=== PATIENT | female | born 1940 | race Caucasian/White ===

== ENCOUNTER 2023-05-03 10:01 | Emergency (ER) | payer OTHER, SELFPAY ==
[2023-05-03 10:06] VITALS: BP 138/83; PULSE 74; RESP 18; TEMP 36.9; O2SAT 99; BMI 23.2
--- NOTE | 2023-05-03 10:30 | ED.UPPEXIN ---
HPI - Extremity Injury (Upper) General Time Seen by Provider: 10:30 Date Seen: 05/03/23 Chief Complaint: Extremity Pain/Injury, Upper Stated Complaint: fell- hurt L wrist Time Seen by Provider: 05/03/23 10:29 Source: patient and RN notes reviewed Mode of arrival: ambulatory Limitations: no limitations History of Present Illness HPI narrative: Patient is an 82-year-old female that fell playing pickleball today and landed on her left wrist. She complains of pain medially along the risks, states it hurts to flex the wrist. There is no numbness tingling. She fell on the left hip area too but states that is not painful, can walk without any pain. 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 complaint: injury to: left and wrist Related Data Home Medications Medication Instructions Recorded Confirmed aspirin 81 mg tablet,delayed 81 mg PO DAILY 05/03/23 05/03/23 release (Adult Aspirin Regimen) atorvastatin 40 mg tablet 40 mg PO DAILY 05/03/23 05/03/23 levothyroxine 50 mcg tablet 50 mcg PO DAILY 05/03/23 05/03/23 multivitamin (Daily Multi-Vitamin 1 tab PO DAILY 05/03/23 05/03/23 tablet) Allergies Allergy/AdvReac Type Severity Reaction Status Date / Time sulfamethoxazole Allergy Intermediate Verified 05/03/23 10:15 [From Bactrim] trimethoprim [From Bactrim] Allergy Intermediate Verified 05/03/23 10:15 metronidazole [From Flagyl] Allergy Mild Verified 05/03/23 10:15 calcium channel blockers Allergy Intermediate Uncoded 05/03/23 10:15 Review of Systems Narrative: As per HPI. PFSH PFS Social History Smoking Status: Never smoker How often do you have a drink containing alcohol: never AUDIT-C Alcohol total score: 0 Non-prescribed substance use: denies use Exam Const: Vital Signs, click to edit/add: Vital Signs - 24 hr 05/03/23 10:06 Temperature 98.5 F Pulse Rate [Pulse Oximeter] 74 Respiratory Rate 18 Blood Pressure [Ri ght Upper Arm] 138/83 Pulse Oximetry 99 Oxygen Delivery Me thod Room Air 82-year-old female ambulatory into the ED of her own accord. She is alert interactive no apparent distress. Face atraumatic. She has ice on her left wrist, this was removed. There is swelling along the distal wrist, tender over the distal radius. Normal light touch sensation of her fingers and good capillary refill. I was able to work her wedding rings off the left 4th finger with use of lubricant. She did tolerate this well. The gabrielle wedding ring was the most difficult to come off, the wedding band came off easily after. She has no pain into the hand or fingers, no pain above the distal radius, elbow and upper arm are normal. Documenting provider has reviewed patient's vital signs: yes Course Course Hospital Course: We will obtain left wrist x-rays to see any underlying fracture. Do suspect that she probably has sustained underlying fracture from the fall. Vital Signs Vital signs: Initial Vital Signs Temperature 98.5 F 05/03/23 10:06 Temperature Source Temporal Artery Scan 05/03/23 10:06 Pulse Rate 74 05/03/23 10:06 Respiratory Rate 18 05/03/23 10:06 Blood Pressure 138/83 05/03/23 10:06 Blood Pressure Mean 101 05/03/23 10:06 Blood Pressure Position Supine 05/03/23 10:06 Pulse Oximetry 99 05/03/23 10:06 Oxygen Delivery Method Room Air 05/03/23 10:06 Vital Signs Temperature 98.5 F 05/03/23 10:06 Pulse Rate 74 05/03/23 10:06 Respiratory Rate 18 05/03/23 10:06 Blood Pressure 138/83 05/03/23 10:06 Pulse Oximetry 99 05/03/23 10:06 Oxygen Delivery Method Room Air 05/03/23 10:06 Temperature 98.5 F 05/03/23 10:06 Pulse Rate 74 05/03/23 10:06 Respiratory Rate 18 05/03/23 10:06 Blood Pressure 138/83 05/03/23 10:06 Pulse Oximetry 99 05/03/23 10:06 Oxygen Delivery Method Room Air 05/03/23 10:06 MDM - Extremity Injury (Upper) Imaging Data XR left wrist: Attestation: I have reviewed the pertinent imaging results. My impression: See distal radius fracture, can see fragment along the dorsal aspect of the radius. Await Radiology over-read. Do not believe that this requires reduction or surgery at this time. Radiologist's impression: Patient: GISELLE BERRY Facility:?[facility] Patient ID:?[id number] Site Patient ID:?[id number]. Site :?[id number] Study:?XRay Extremity Left WRIST 3V-05/03/2023 11:00:19 AM Ordering Physician:Yoandy Mccoy Final Report: Indication: Injury and pain Technique: Left wrist 3 view Comparison: None Findings: There is a mildly displaced intra-articular fracture involving the distal radial metaphysis with associated dorsal impaction. Degenerative changes at the triscaphe joint and 1st carpometacarpal joint. The distal ulna is intact. Impression: Acute intra-articular distal radial metaphyseal fracture with dorsal impaction. Dictated by Christian Farley MD @ 05/03/2023 11:21:46 AM (Electronic Signature) Discharge Plan Discharge Clinical Impression: Distal radius fracture, left Patient Disposition: Home, Self-Care Condition: Stable Instructions: Wrist Fracture in Adults (ED) Additional Instructions: Need to keep splint material clean and dry. Can use arm sling as needed for comfort. Ice, elevate this extremity as much as you are able to for the next 3-5 days to help decrease pain and swelling. Keep your rings off these fingers of this hand for the time being. Tylenol 1000 mg 3 times a day if needed for pain management. Call the orthopedic clinic at [phone] to get scheduled for follow-up. Prescriptions: No Action atorvastatin 40 mg tablet 40 mg PO DAILY levothyroxine 50 mcg tablet 50 mcg PO DAILY aspirin [Adult Aspirin Regimen] 81 mg tablet,delayed release (DR/EC) 81 mg PO DAILY multivitamin [Daily Multi-Vitamin] Tablet 1 tab PO DAILY Follow Up/Referrals: Olimpia Reyes MD [Primary Care Provider] - Stand Alone Forms: [facility] Info Instructions Procedures Orthopedic Splinting/Casting Injury #1: Side: left Upper Extremity Injury Location: wrist Upper extremity immobilizer: short arm (Dorsal-volar splint using Ortho Glass) Applied by clinician: / Other Orthopedic Equipment: other (Arm sling) Conclusion: patient tolerated procedure
--- NOTE | 2023-05-03 10:34 | CRLHL7_ITS ---
For Patients: As a result of the Cures Act, medical imaging exams and procedure reports are released immediately into your electronic medical record. You may view this report before your referring provider. If you have questions, please contact your health care provider. Indication: Injury and pain Technique: Left wrist 3 view Comparison: None Findings: There is a mildly displaced intra-articular fracture involving the distal radial metaphysis with associated dorsal impaction. Degenerative changes at the triscaphe joint and 1st carpometacarpal joint. The distal ulna is intact. Impression: Acute intra-articular distal radial metaphyseal fracture with dorsal impaction. Dictated by Christian Farley MD @ 05/03/2023 11:21:46 AM (Electronically Signed)
== END 2023-05-03 11:41 | disposition home or self-care (01) ==
PROVIDERS: Emergency Provider Family Medicine; PCP Family Medicine
DX: S52.502A Unspecified fracture of the lower end of left radius, initial encounter for closed fracture (principal); W18.30XA Fall on same level, unspecified, initial encounter; Y93.73 Activity, racquet and hand sports
CPT/HCPCS: 29125; 73110; 99283

== ENCOUNTER 2023-08-06 13:30 | Outpatient (RCR) | payer OTHER, SELFPAY ==
--- NOTE | 2023-06-17 17:07 | OT.OPOE ---
OT Outpatient Ortho Eval OT Outpatient Ortho Eval* Start: 06/17/23 16:29 Freq: Status: Active Protocol: Document 06/17/23 16:31 LCN (Rec: 06/17/23 16:52 LCN [id number]) E-signed By Gemma Mansfield, OTR/L, CLT OT OP Ortho Eval Details Complexity Complexity Low Insurance Information Insurance Information Blue Cross/Blue Shield Outpatient History/Precautions Current Condition/Medical Diagnosis Referring Provider Bronson Das PA-C Treatment Diagnosis L wrist stiffness, ROM loss after L distal radius fracture Date of Onset 05/03/23 Medical Conditions Arthritis Other Conditions allergic to sulfamethoxazole, trimethoprim, diltiazem and metronidazole Medical/Functional History Medical History Reviewed Yes Social History 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 Hobbies playing piano for [employer] and [employer], reading caring for grandchildren. Fitness [employer], fitness center Ortho Subjective Subjective Subjective Megha Bradley is an active youthful 82 y/o female who fell onto outstretched hand during pickle ball with her 20 y/o partner. She was found to have a, interarticular distal radius fracture with 11 degree angulation angulation and and mild dorsal displacement and ulnar styloid fragment. SHe was casted through 06/06 and fit into a velcro brace for use during heavy tasks, off with light tasks like dishwashing and playing piano for short periods. 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 Pain Assessment Pain Present Pain Present Pain Reported Location L wrist, TFCC area Description Tightness,Pressure,Sharp,Dull, Achy,Throbbing,With Movement, Heaviness Intensity 4 Range of Motion and Strength Wrist Range of Motion and Strength Wrist Range of Motion and Strength Good shoulder and elbow ROM. SUpination to 80 of 90 with TFCC area tenderness during overpressure. Pronation 110 of 110. WE to 35 of 75. WF 40 of 75[address] UD [address] 10 of [address] Pressure at MC 1/2 proximal head and TFCC areas. Can make 90% loose fist. Extends digits off table 5 degrees. Joint appearance-- radial shift of hand off midline, bulging at lunate area, CMC squaring, thenar/ hypothenar/ forearm muscle wasting. Good skin color, cool skin temp. Gripping and pinching are 6/10 pain, per below Hand Pinch/Rod And Tube Straightener Strength Hand Left Rod And Tube Straightener Strength Position 1 (lbs) 5 Lateral Pinch Strength (lbs) 4 Three Point Pinch (lbs) 4 Right Rod And Tube Straightener Strength Position 1 (lbs) 50 Lateral Pinch Strength (lbs) 16 Three Point Pinch (lbs) 15 OT Problems Problems Problems Decreased Strength,Decreased Range of Motion,Decreased Dexterity,Pain,Lifting, Gripping,Pinching Problems Comments hard to open jars, pull pants up with de luna pinch. Newly able to tie shoes. Other Problems Opening Containers,Dressing, Fasteners Patient Potential Good Assessment Assessment Assessment Given Megha's?difficulty with edema, pain, ROM and strength loss of L hand/wrist after her distal radius fracture combined with STT CMC OA history, she would benefit from skilled OT to address these areas to help resume higher level IADL tasks. Occupational Therapy Treatment Plan - OP Potential Rehabilitation Potential Excellent Set Goals Goals Set with Patient Yes Goals Goals In 10 weeks, pt will demonstrate:? 1) Decreased pn to <2/10 80% of the time with sustained gripping, carrying groceries, reading books and playing piano. 2) I HEP for stretching, gradual strengthening and self mgmt strategies. 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 4)??Pt to be fit with functional bracing (for wrist) and use adaptive strategies to protect joint integrity to support less pain with ADL. Treatment Plan Treatment Plan Evaluation,Edema Control,Joint Mobilization,Manual Therapy, Splinting,Therapeutic Exercise ,Self Care/Home Management, Education Expected Frequency 1-2x Week Expected Duration 8-10 Weeks Expected Duration Comments Outcomes, longer need for OT services could be impacted by L CMC and STT OA comorbidities . Home Program Home Program Home Program Initiated Home Program Specifics Warm water soaks, wrist glides /stretches for WE/FL, RD/UD sup/pronation and SROM WE/WF. Certification Certification I Certify That: Therapy Services Provided, Therapy Plan Established, Therapy Plan Reviewed Recertification Information Recertification Information Initial Certification Date 06/17/23 Recertification Due Date 09/15/23 Provider Signature Shows Agreement With POC & Medical Necessity Physician Comment/Change Comment or Changes Physician NPI Number #
--- NOTE | 2023-07-01 12:50 | OT.OPODN ---
OT Outpatient Ortho Daily Note OT Outpatient Ortho Daily Note* Start: 06/17/23 16:29 Freq: Status: Active Protocol: Document 07/01/23 10:14 LCN (Rec: 07/01/23 12:50 LCN [id number]) E-signed By Gemma Mansfield OTR/Brennan, CLT Type of Note Type of Note Type of Note Daily Note,Note to MD Visit Number 5 Insurance Information Insurance Information Blue Cross/Blue Shield Outpatient History/Precautions Current Condition/Medical Diagnosis Referring Provider Bronson Das PA-C Treatment Diagnosis L wrist stiffness, ROM loss after L distal radius fracture Date of Onset 05/03/23 Medical Conditions Arthritis Other Conditions allergic to sulfamethoxazole, trimethoprim, diltiazem and metronidazole Medical/Functional History Medical History Reviewed Yes Social History 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 Fitness [employer], fitness center Ortho Subjective Subjective Subjective Is able to play piano for three songs with and without brace, gets occasional waves of MF/RF numbness in L hand, pinching feeling at lunate during PROM of WE, wall push up. Using brace while driving , encouraging to wean as she can for house hold chores/ washing windows, light yard work. OT suggests she try light pickle ball drills with R hand at the court with brace . Still hard to pour out pots. Megha Ling is an active youthful 82 y/o female who fell onto outstretched hand during pickle ball with her 20 y/o partner. She was found to have a, interarticular distal radius fracture with 11 degree angulation angulation and and mild dorsal displacement and ulnar styloid fragment. She was casted through 06/06 and fit into a velcro brace for use during heavy tasks, off with light tasks like dishwashing and playing piano for short periods. 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 Pain Assessment Pain Present Pain Present Pain Reported Location L wrist, TFCC area Description Tightness,Pressure,Sharp,Dull, Achy,Throbbing,With Movement, Heaviness Intensity 3 OT OP Daily Ortho Note/Assessment Manual Therapy Manual Therapy Minutes (minutes) 35 Manual Therapy Comments OTR completes STM of forearm flexor and extensor muscle bulk, joint mobilizations of distal and proximal carpal row . Gets pain at TFCC Splinting Splinting Minutes (minutes) 7 Splinting Comments Completed trial with neoprene TFCC stabilizer band w velcro closure with and without weightbearing, wall push push, helped some? Total Occupational Therapy Time Occupational Therapy Minutes 35 Home Program Home Program Home Program Revised,Compliant Home Program Specifics 06/28/23- Yellow putty refrigerator assembler/ rolling alternating 2pt and de luna pinch. 06/21/23- WE FL AAROM , wall push ups Warm water soaks, wrist glides /stretches for WE/FL, RD/UD sup/pronation and SROM WE/WF. Range of Motion and Strength Wrist Range of Motion and Strength Wrist Range of Motion and Strength Good shoulder and elbow ROM. SUpination to 80 of 90 with TFCC area tenderness during overpressure. Pronation 110 of 110. WE to 35 of 75. WF 40 of 75. UD [address] 10 of [address] Pressure at MC 1/2 proximal head and TFCC areas. Can make 90% loose fist. Extends digits off table 5 degrees. Joint appearance-- radial shift of hand off midline, bulging at lunate area, CMC squaring, thenar/ hypothenar/ forearm muscle wasting. Good skin color, cool skin temp. Gripping and pinching are 6/10 pain, per below Hand/Finger/Thumb Range of Motion and Strength Hand/Finger/Thumb Range of Motion and 07/01/23-- OA CHANGES hyper Strength flexes with TH IP, MP hyper extended and L MCP hyper extension pattern at IF; Gets sore. Goniometric Comments Goniometric Comments Goniometric Comments 07/01/23-- WE to 65 and WF improves to 60-67 degrees inside of session. ( tractioning stretch helps.) 06/28/23-- WE to 50 and WR FL to 60. [employer] 7# R. 06/21/23-- WE 50, WF 45 pre OT Hand Pinch/[employer] [employer] [facility] Strength Hand Left [facility] [employer] [facility] Strength Position 1 (lbs) 5 Lateral Pinch Strength (lbs) 4 Three Point Pinch (lbs) 4 Right [employer] [facility] Strength Position 1 (lbs) 50 Lateral Pinch Strength (lbs) 16 Three Point Pinch (lbs) 15 OT Problems Problems Problems Decreased Strength,Decreased Range of Motion,Decreased Dexterity,Pain,Lifting, Gripping,Pinching Problems Comments hard to open jars, pull pants up with de luna pinch. Newly able to tie shoes. Other Problems Opening Containers,Dressing, Fasteners Patient Potential Excellent Assessment Assessment Assessment Pt progressing steadily with ROM, decreasing pain and improved endurance with piano playing and baking tasks. Given Megha's?difficulty with edema, pain, ROM and strength loss of L hand/wrist after her distal radius fracture combined with STT CMC OA history, she would benefit from skilled OT to address these areas to help resume higher level IADL tasks. Occupational Therapy Treatment Plan - OP Potential Rehabilitation Potential Excellent Set Goals Goals Set with Patient Yes Goals Goals In 10 weeks, pt will demonstrate:? 1) Decreased pn to <2/10 80% of the time with sustained gripping, carrying groceries, reading books and playing piano. 2) I HEP for stretching, gradual strengthening and self mgmt strategies. 3) improved L refrigerator assembler strength to 35# and pinch to 12# with L wrist pain < 1/10. 4)??Pt to be fit with functional bracing (for wrist) and use adaptive strategies to protect joint integrity to support less pain with ADL. Treatment Plan Treatment Plan Evaluation,Edema Control,Joint Mobilization,Manual Therapy, Splinting,Therapeutic Exercise ,Self Care/Home Management, Education Expected Frequency 1-2x Week Expected Duration 8-10 Weeks Expected Duration Comments Outcomes, longer need for OT services could be impacted by L CMC and STT OA comorbidities . Occupational Therapy Billing Units Treatment Minutes Untimed Treatment Minutes 7 Timed Treatment Minutes 35 Total Treatment Minutes 42 Billing Units Manual Therapy 2 Certification Certification I Certify That: Therapy Services Provided, Therapy Plan Established, Therapy Plan Reviewed Recertification Information Recertification Information Initial Certification Date 06/17/23 Recertification Due Date 09/15/23 Provider Signature Shows Agreement With POC & Medical Necessity Physician Comment/Change Comment or Changes Physician NPI Number #
--- NOTE | 2023-08-06 16:21 | OT.OPODN ---
OT Outpatient Ortho Daily Note OT Outpatient Ortho Daily Note* Start: 06/17/23 16:29 Freq: Status: Active Protocol: Document 08/06/23 15:56 LCN (Rec: 08/06/23 16:21 LCN [id number]) E-signed By Gemma Mansfield, OTR/L, CLT Type of Note Type of Note Type of Note Daily Note,Note to MD,Recert/ Progress Note Visit Number [id number] Insurance Information Insurance Information Blue Cross/Blue Shield Outpatient History/Precautions Current Condition/Medical Diagnosis Referring Provider Bronson Das PA-C Treatment Diagnosis L wrist stiffness, ROM loss after L distal radius fracture Date of Onset 05/03/23 Medical Conditions Arthritis Other Conditions allergic to sulfamethoxazole, trimethoprim, diltiazem and metronidazole Medical/Functional History Medical History Reviewed Yes Social History 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 Hobbies playing piano for [employer] and [employer], reading caring for grandchildren. Fitness [employer], fitness center Ortho Subjective Subjective Subjective It is still hard to get out of tub but weightbearing into L palm/forearm, It's not pretty . Also gets foot cramps. Is able to play pickle ball ( using mostly R hand, brace on L wrist) Plays piano x 20 min, drives without brace x 60 min w very mild IF/TH numbness in L hand. (has sx 2-3 intervals per day 5-10 minutes, can stretch her way out of it with wrist flexion/traction). Gets some paresthesia at night as well for R and L hands. Still gets pinching feeling at TFCC during PROM of WE, wall push up. I can tell the motion I have is probably what I will get, it's not perfect, but it' s pretty good. Feels stiff in all joints every morning, contrasts baths help. Pain Assessment Pain Present Pain Present Pain Reported Location L wrist, TFCC area Description Tightness,Pressure,Sharp,Dull, Achy,Throbbing,With Movement, Heaviness Intensity 2 OT OP Daily Ortho Note/Assessment Therapeutic Exercise Therapeutic Exercise Minutes (minutes) 15 Therapeutic Exercise Comments Completed objective data and review of goal progress. Pt with out questions on home program. Shown how to progress office auditor strengthening further with office auditor rubber band ekg monitor with 15 # band loading. Self-Care/Home Management Self-Care/Home Management Minutes ( 35 minutes) Self-Care/Home Management Comments Problem solved how to get in/ out of tub safely adding dycem to tub rim ( patting surfaces dry before moving), chrome tub edge clamp grab bar ( info issued to order) Simulated in clinic. Practiced opening jars/ bottles with adaptive handles (issued ordering info) . 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 Splinting Splinting Comments 07/24/23-- Got new wrist neoprene wrap for L wrist/TFCC support. 07/16/23-- Pt to get wrist splint for HS hand numbness. Total Occupational Therapy Time Occupational Therapy Minutes 50 Home Program Home Program Home Program Revised,Compliant Home Program Specifics 07/24/23-- isotonic WR EX, FL w orange band. Cont UD and RD as isometrics. 07/05/23-- isometric band loading series WR EX/FL/RD/UD in neutral, orange band 06/28/23- Yellow putty office auditor/ rolling alternating 2pt and matias pinch. 06/21/23- WE FL AAROM , wall push ups Warm water soaks, wrist glides /stretches for WE/FL, RD/UD sup/pronation and SROM WE/WF. Range of Motion and Strength Wrist Range of Motion and Strength Wrist Range of Motion and Strength Good shoulder and elbow ROM. SUpination to 80 of 90 with TFCC area tenderness during overpressure. Pronation 110 of 110. WE to 35 of 75. WF 40 of 75. [address]D [address] 10 of [address] Pressure at MC 1/2 proximal head and TFCC areas. Can make 90% loose fist. Extends digits off table 5 degrees. Joint appearance-- radial shift of hand off midline, bulging at lunate area, CMC squaring, thenar/ hypothenar/ forearm muscle wasting. Good skin color, cool skin temp. Gripping and pinching are 6/10 pain, per below Hand/Finger/Thumb Range of Motion and Strength Hand/Finger/Thumb Range of Motion and 07/01/23-- OA CHANGES hyper Strength flexes with TH IP, MP hyper extended and L MCP hyper extension pattern at IF; Gets sore. Goniometric Comments Goniometric Comments Goniometric Comments 08/06/23-- AROM / PROM WR EX 65 / 70. WR FL 70 / 73. SUP 87 of 90. 07/16/23-- Pre OT, AROM of WE is 45, AAROM 55. WR FL is 65 AROM and 72 AAROM. Durkan's ( -) and Tinel's (-). 3 pt pinch is 11# R, no pain, with and without CMC push splint. 07/05/23-- WE to 65 and WF improves to 60-65 degrees inside of session. Matias pinch and 3 pt are 5#. 07/01/23-- WE to 65 and WF improves to 60-67 degrees inside of session. ( tractioning stretch helps.) 06/28/23-- WE to 50 and WR FL to 60. Proof Sorter 7# R. 06/21/23-- WE 50, WF 45 pre OT Hand Pinch/Proof Sorter Strength Hand Left Proof Sorter Strength Position 1 (lbs) 14 Lateral Pinch Strength (lbs) 5 Three Point Pinch (lbs) 6 Right Proof Sorter Strength Position 1 (lbs) 50 Lateral Pinch Strength (lbs) 16 Three Point Pinch (lbs) 15 Upper Extremity Special Tests Wrist Durkan's Test Negative Left Median Nerve-Carpal Tunnel Wrist Phalen Test Negative Left Wrist Tinel Test left Upper Extremity Special Tests Comments Comments Luis Delgado's Negative per 07/16/23 testing OT Problems Problems Problems Decreased Strength,Decreased Range of Motion,Decreased Dexterity,Pain,Lifting, Gripping,Pinching Problems Comments hard to open jars, pull pants up with matias pinch. Newly able to tie shoes. Other Problems Opening Containers,Dressing, Fasteners Patient Potential Excellent Assessment Assessment Assessment Pt progressing with daily activity level, despite having TFCC achiness daily and intermittent carpal tunnel irritation as well. Feeling ready for discharge from OT, but pacheco have some continued office auditor and pinch weakness with have plateaued in the past month. Occupational Therapy Treatment Plan - OP Potential Rehabilitation Potential Excellent Set Goals Goals Set with Patient Yes Goals Goals GOAL PROGRESS 08/06/23-- 1) Decreased pn to <2/10 80% of the time with sustained gripping, carrying groceries, reading books and playing piano. (GOAL MET) 2) I HEP for stretching, gradual strengthening and self mgmt strategies. (GOAL MET) 3) improved L office auditor strength to 35# and pinch to 12# with L wrist pain < 1/10. (GOAL NOT MET, plateaued at 14# office auditor, Matias pinch 5# and 3 pt pinch 6# ) 4)??Pt to be fit with functional bracing (for wrist) and use adaptive strategies to protect joint integrity to support less pain with ADL. ( GOAL MET) Treatment Plan Treatment Plan Evaluation,Edema Control,Joint Mobilization,Manual Therapy, Splinting,Therapeutic Exercise ,Self Care/Home Management, Education Expected Frequency 1-2x Week Expected Duration 8-10 Weeks Expected Duration Comments Outcomes, longer need for OT services could be impacted by L CMC and STT OA comorbidities . Comment Summary OT is leaving account open for further support if requested after her next Ortho appointment August 16 Occupational Therapy Billing Units Treatment Minutes Timed Treatment Minutes 50 Total Treatment Minutes 50 Billing Units Self Care/Home Management 2 Therapeutic Exercise 1 Certification Certification I Certify That: Therapy Services Provided, Therapy Plan Established, Therapy Plan Reviewed Recertification Information Recertification Information Initial Certification Date 06/17/23 Recertification Due Date 09/15/23 Provider Signature Shows Agreement With POC & Medical Necessity Physician Comment/Change Comment or Changes Physician NPI Number # Discharge Note Discharge Note Discharge Summary Anticipating this is pt's discharge from OT, per above progress. Date of First Visit for Therapy 06/17/23 Date of Last Visit for Therapy 08/06/23 Initial Primary Functional Limitations/ Megha Ling is an active Concerns youthful 82 y/o female who fell onto outstretched hand during pickle ball with her 20 y/o partner. She was found to have a, interarticular distal radius fracture with 11 degree angulation angulation and and mild dorsal displacement and ulnar styloid fragment. She was casted through 06/06 and fit into a velcro brace for use during heavy tasks, off with light tasks like dishwashing and playing piano for short periods. 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 Interventions Provided During Treatment Edema Control,Joint Mobilization,Manual Therapy, Splinting,Therapeutic Exercise ,Self Care/Home Management, Education Recommendations/Reason for Discharge Met All Therapy Goals,Progress Cont w/HEP Discharge Instructions May return for further OT if mild CTS symptoms and weakness of office auditor/pinch are continued concern.
== END 2023-12-04 23:59 | disposition home or self-care (01) ==
PROVIDERS: PCP Family Medicine; Visit Provider Physician Assistant Surgical
DX: S52.502A Unspecified fracture of the lower end of left radius, initial encounter for closed fracture (principal); M25.632 Stiffness of left wrist, not elsewhere classified; Z74.09 Other reduced mobility; Z51.89 Encounter for other specified aftercare
CPT/HCPCS: 97110; 97140; 97165; 97535; X5282

== ENCOUNTER 2024-08-07 09:56 | Inpatient (IN) | payer OTHER, SELFPAY ==
[2024-08-07 10:25] VITALS: BP 150/77; PULSE 81; RESP 20; TEMP 36.5; O2SAT 99; BMI 21.5
--- NOTE | 2024-08-07 10:55 | ED.ABDPAIN ---
HPI - Abdominal Pain General Time Seen by Provider: 10:55 Date Seen: 08/07/24 Chief Complaint: Abdominal Pain Stated Complaint: diverticulitis Time Seen by Provider: 08/07/24 10:54 Source: patient and RN notes reviewed Mode of arrival: ambulatory Limitations: no limitations History of Present Illness HPI narrative: This 83-year-old female is ambulatory into the ED of her own accord with concern of possible diverticulitis. She started with some abdominal cramping or discomfort on Saturday, states right now there is not really much for pain. She might get a little cramping. She started passing mucus yesterday, went to a clear liquid diet. She states she is actually hungry, no nausea or vomiting with this, no fevers or chills. She has fecal urgency. She did note a little blood streaking in some of the mucus. There is still some soft formed stool within some mucus. She is not aware of any diagnosis of colitis ever. She thinks last time she had imaging was in 2021. She does have a bottle of Augmentin on hand which she has not started, takes this with traveling in case there might be diverticulitis that would develop. Related Data Home Medications ?Medication ?Instructions ?Recorded ?Confirmed aspirin 81 mg tablet,delayed 81 mg PO DAILY 05/03/23 08/16/23 release (Adult Aspirin Regimen) atorvastatin 40 mg tablet 40 mg PO DAILY 05/03/23 08/16/23 levothyroxine 50 mcg tablet 50 mcg PO DAILY 05/03/23 08/16/23 multivitamin (Daily Multi-Vitamin 1 tab PO DAILY 05/03/23 08/16/23 tablet) Allergies Allergy/AdvReac Type Severity Reaction Status Date / Time sulfamethoxazole (From Allergy Intermediate Verified 08/07/24 12:01 Bactrim) trimethoprim (From Bactrim) Allergy Intermediate Verified 08/07/24 12:01 diltiazem Allergy Unknown Verified 08/07/24 12:01 metronidazole (From Flagyl) Allergy Unknown Verified 08/07/24 12:01 calcium channel blockers Allergy Intermediate Uncoded 08/07/24 12:01 Review of Systems Status of ROS Reports: 6 or more systems reviewed and unremarkable except as noted in History and below [facility] Medical History Encounter for preprocedure screening laboratory testing for severe acute respiratory syndrome coronavirus 2 (SARS-CoV-2) ?Z01.812 - Encounter for preprocedural laboratory examination (ICD-10) ?Z20.822 - Contact with and (suspected) exposure to covid-19 (ICD-10) Surgical History History of phacoemulsification of cataract of right eye with intraocular lens implantation (01/04/21) ?Z98.41 - Cataract extraction status, right eye (ICD-10) ?Z96.1 - Presence of intraocular lens (ICD-10) History of phacoemulsification of cataract of left eye with intraocular lens implantation (01/18/21) ?Z98.42 - Cataract extraction status, left eye (ICD-10) ?Z96.1 - Presence of intraocular lens (ICD-10) Social History Smoking Status: Never smoker Do you use any of these nicotine containing products: None Second hand tobacco smoke exposure: No How often do you have a drink containing alcohol: never AUDIT-C Alcohol total score: 0 Non-prescribed substance use: denies use service: No Exam Const: Vital Signs, click to edit/add: Vital Signs - 24 hr 08/07/24 10:25 08/07/24 13:12 Temperature 97.7 F Pulse Rate [Pulse Oximeter] 81 77 Respiratory Rate 20 18 Blood Pressure [Le ft Upper Arm] 150/77 H 133/64 Pulse Oximetry 99 98 Oxygen Delivery Me thod Room Air Room Air This 83-year-old female is alert, interactive, no apparent distress. Sclera clear, symmetric facial function. Speech is normal. She is able sit up, lungs are clear, good air entry, no wheezing crackles, no tachypnea. CV regular rate and rhythm, no murmur, normal S1-S2, no S3-S4. Abdomen is soft, nondistended, bowel sounds are definitely active but no tympanitic change noted. Abdomen is soft, feel no masses, no tenderness anywhere, no rebound or guarding. Skin visualized without rash or jaundice. Documenting provider has reviewed patient's vital signs: yes Course Course ED Course: Her abdominal exam is reassuring, no significant pain. Will still proceed with CT imaging to help elucidate if this is early diverticulitis versus potentially a colitis. Will get baseline labs. She really does not have any nausea or pain at this time that requires any intervention. Clinically a abdominal exam is certainly nonsurgical at this time. Reevaluation(s) Time of Reevaluation #1: 13:17 Reevaluation #1: Did call general surgeon Dr. Munoz, she will be here to review CT/case. She feels that the abscess is not amenable to any percutaneous drainage, is deep in the pelvis after she reviewed the images. Will plan on putting patient in the hospital on ertapenem. Will contact the hospitalist, she is speaking with the patient right now. Consultations Consultation #1: Have spoken with the hospitalist Dr. Moreno, she will accept. Time: 13:41 Vital Signs Vital signs: Initial Vital Signs Temperature 97.7 F 08/07/24 10:25 Temperature Source Temporal Artery Scan 08/07/24 10:25 Pulse Rate 81 08/07/24 10:25 Pulse Rhythm Regular 08/07/24 10:25 Respiratory Rate 20 08/07/24 10:25 Blood Pressure 150/77 H 08/07/24 10:25 Blood Pressure Mean 101 08/07/24 10:25 Blood Pressure Position Supine 08/07/24 10:25 Pulse Oximetry 99 08/07/24 10:25 Oxygen Delivery Method Room Air 08/07/24 10:25 Vital Signs Temperature 97.7 F 08/07/24 10:25 Pulse Rate 81 08/07/24 10:25 Respiratory Rate 20 08/07/24 10:25 Blood Pressure 150/77 H 08/07/24 10:25 Pulse Oximetry 99 08/07/24 10:25 Oxygen Delivery Method Room Air 08/07/24 10:25 Temperature 97.7 F 08/07/24 10:25 Pulse Rate 77 08/07/24 13:12 Respiratory Rate 18 08/07/24 13:12 Blood Pressure 133/64 08/07/24 13:12 Pulse Oximetry 98 08/07/24 13:12 Oxygen Delivery Method Room Air 08/07/24 13:12 Medications Administered Medications: Generic Name Dose Route Start Last Admin Trade Name Freq PRN Reason Stop Dose Admin Ertapenem 1 gm/ Sodium 100 mls @ 200 mls/hr 08/07/24 13:30 08/07/24 13:33 Chloride IVPB 200 mls/hr Q24H JOEY Administration MDM - Abdominal Pain Lab Data Attestation: I reviewed the patient's lab results. Labs: Lab Results 08/07/24 08/07/24 Range/Units 11:00 11:15 WBC 7.44 (4.50-11.00) K/uL RBC 4.05 (4.00-5.20) m/uL Hgb 13.0 (12.0-16.0) gm/dL Hct 39.9 (33.0-51.0) % MCV 99 (80-100) fL MCH 32 (26-34) pg MCHC 33 (32-36) gm/dL RDW Coeff of Mary 12.7 (11.5-15.5) % Plt Count 178 (140-440) K/uL Neut % (Auto) 78.6 H (42.0-72.0) % Lymph % (Auto) 11.6 L (20-44) % Davis % (Auto) 9.0 (0.0-11.0) % Eos % (Auto) 0.4 (0.0-7.0) % Baso % (Auto) 0.3 (0.0-3.0) % Neut # (Auto) 5.80 (1.7-7.0) K/uL Lymph # (Auto) 0.90 (0.90-2.90) K/uL Davis # (Auto) 0.70 (0.00-0.90) K/UL Eos # (Auto) 0.03 (0.00-0.50) K/uL Baso # (Auto) 0.02 (0.00-0.30) K/uL Abs Immat Gran (auto) 0.01 (0.00-0.30) K/uL Imm/Tot Granulo (auto) 0.1 % Sodium 132 L (135-149) mmol/L Potassium 3.9 (3.6-5.1) mmol/L Chloride 99 (96-114) mmol/L Carbon Dioxide 25 (20-32) mmol/L Anion Gap 8 (7-15) mEq/L BUN 22 (7-30) mg/dL Creatinine 0.7 (0.5-1.5) mg/dL Estimated Creat Clear 36.81 Estimated GFR 86 ml/min Glucose 90 (60-115) mg/dL Lactate 1.0 (0.5-1.9) mmol/L Calcium 8.9 (8.4-10.6) mg/dL Total Bilirubin 1.2 (0.1-1.5) mg/dL AST 37 H (12-35) U/L ALT 21 (4-35) U/L Alkaline Phosphatase 63 (40-150) U/L C-Reactive Protein 6.3 H (0.5-1.0) mg/dL Total Protein 7.6 (6.0-8.3) g/dL Albumin 4.3 (3.3-5.0) g/dL POC Creatinine 0.8 (0.6-1.3) mg/dl Imaging Data CT scan - abdomen: Attestation: I have reviewed the pertinent imaging results. Radiologist's impression: Patient: GISELLE BERRY Facility:?[facility] Patient ID:?[id number] Site Patient ID:?[id number]. Site :?[id number] Study:?CT-Abdomen/Pelvis 62CC ISOVUE 370-08/07/2024 12:04:37 PM Ordering Physician:Yoandy Mccoy Final Report: INDICATION: Mucous stools. Cramping. History of diverticulitis. TECHNIQUE: CT abdomen and pelvis acquired with 62 cc of Isovue 370 IV contrast. COMPARISON: CT abdomen and pelvis without contrast 02/25/2022. FINDINGS: Lower chest: Mild bibasilar scarring or atelectasis. Lung bases are otherwise clear. No pleural or pericardial effusions. Pectus deformity, as before. Liver: Fatty change. No focal lesion. Spleen: Unremarkable. Pancreas: Unremarkable. Gallbladder and bile ducts: No calcified stones or biliary ductal dilatation. Kidneys: Small right renal cyst. No urolithiasis or hydronephrosis. Adrenal glands: Unremarkable. GI tract: Colonic diverticulosis with wall thickening and pericolonic stranding of the sigmoid colon in the midline pelvis. An adjacent rim enhancing pericolonic collection measures 17 mm on image 92 of series 2. No bowel obstruction. No free air or free fluid. Lymph nodes: No pathologic lymphadenopathy. Vascular structures: Atherosclerotic disease. No abdominal aortic aneurysm. Pelvic Organs: Bladder and adnexal regions as imaged are unremarkable. Bones: No acute or suspicious osseous abnormality. Degenerative changes spine and pelvis. IMPRESSION: Acute sigmoid diverticulitis in the pelvis with associated 17 mm pericolonic abscess. Dictated by Kal Goyla MD @ 08/07/2024 12:33:03 PM Please note that all CT scans at this facility use dose modulation, iterative reconstruction, and/or weight-based dosing when appropriate to reduce radiation dose to as low as reasonably achievable. Dictated by: Kal Goyal MD @ 08/07/2024 12:33:17 (Electronic Signature) Discharge Plan Discharge Clinical Impression: Diverticulitis of intestine with abscess Qualifiers: Diverticulitis site: large intestine Diverticulitis bleeding: without bleeding Qualified Code(s): K57.20 - Diverticulitis of large intestine with perforation and abscess without bleeding Prescriptions: No Action atorvastatin 40 mg tablet 40 mg PO DAILY levothyroxine 50 mcg tablet 50 mcg PO DAILY aspirin [Adult Aspirin Regimen] 81 mg tablet,delayed release (DR/EC) 81 mg PO DAILY multivitamin [Daily Multi-Vitamin] Tablet 1 tab PO DAILY Follow Up/Referrals: Olimpia Reyes MD [Primary Care Provider] -
--- NOTE | 2024-08-07 10:59 | CRLHL7_ITS ---
For Patients: As a result of the Century Cures Act, medical imaging exams and procedure reports are released immediately into your electronic medical record. You may view this report before your referring provider. If you have questions, please contact your health care provider. INDICATION: Mucous stools. Cramping. History of diverticulitis. TECHNIQUE: CT abdomen and pelvis acquired with 62 cc of Isovue 370 IV contrast. COMPARISON: CT abdomen and pelvis without contrast 02/25/2022. FINDINGS: Lower chest: Mild bibasilar scarring or atelectasis. Lung bases are otherwise clear. No pleural or pericardial effusions. Pectus deformity, as before. Liver: Fatty change. No focal lesion. Spleen: Unremarkable. Pancreas: Unremarkable. Gallbladder and bile ducts: No calcified stones or biliary ductal dilatation. Kidneys: Small right renal cyst. No urolithiasis or hydronephrosis. Adrenal glands: Unremarkable. GI tract: Colonic diverticulosis with wall thickening and pericolonic stranding of the sigmoid colon in the midline pelvis. An adjacent rim enhancing pericolonic collection measures 17 mm on image 92 of series 2. No bowel obstruction. No free air or free fluid. Lymph nodes: No pathologic lymphadenopathy. Vascular structures: Atherosclerotic disease. No abdominal aortic aneurysm. Pelvic Organs: Bladder and adnexal regions as imaged are unremarkable. Bones: No acute or suspicious osseous abnormality. Degenerative changes spine and pelvis. IMPRESSION: Acute sigmoid diverticulitis in the pelvis with associated 17 mm pericolonic abscess. Dictated by Kal Goyal MD @ 08/07/2024 12:33:03 PM Please note that all CT scans at this facility use dose modulation, iterative reconstruction, and/or weight-based dosing when appropriate to reduce radiation dose to as low as reasonably achievable. Dictated by: Kal Goyal MD @ 08/07/2024 12:33:17 (Electronically Signed)
[2024-08-07 11:24] LABS: Basophils Absolute Auto 0.02 K/uL (0.00-0.30); Basophils Percent Auto 0.3 % (0.0-3.0); Eosinophils Absolute Auto 0.03 K/uL (0.00-0.50); Eosinophils Percent Auto 0.4 % (0.0-7.0); Hematocrit 39.9 % (33.0-51.0); Immature Granulocytes Abs Auto 0.01 K/uL (0.00-0.30); Immature Granulocytes Pct Auto 0.1 %; Lymphocytes Percent Auto 11.6 % (20-44); Mean Corpuscular HGB Conc 33 gm/dL (32-36); Mean Corpuscular Hemoglobin 32 pg (26-34); Mean Corpuscular Volume 99 fL (80-100); Neutrophils Percent Auto 78.6 % (42.0-72.0); Platelet Count* 178 K/uL (140-440); RDW Coefficient of Variation % 12.7 % (11.5-15.5); Red Blood Count 4.05 m/uL (4.00-5.20); White Blood Count* 7.44 K/uL (4.50-11.00)
--- OUTSIDE RECORDS SUMMARY | 2024-08-07 11:26 | XMS_ITS | Clinical Summary ---
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 Medications Medication Sig Dispensed Refills Start Date End Date Status omega-3 fatty acids-vitamin E (FISH OIL) 1,000 mg cap Take by mouth. Active MULTIVITAMIN ORAL Take by mouth. Act yeimi aspirin chewable 81 mg chewable tablet Take 81 mg by mouth once daily with a meal. Active CALCIUM CARBONATE (CALCIUM 600 ORAL)Indications:w ith D3 Take by mouth. Active psyllium powd Take 1 Dose by mouth. Active cycloSPORINE (Restasis) 0.05 % ophthalmic emulsion Place 1 Drop into both eyes every 12 hours. 0 2 Active nystatin (MYCOSTATIN) ointmentIndication s:Perineal rash in female Apply topically to affected area(s) 2 times daily. 30 g 2 2 Active hyoscyamine (Levsin) 0.125 mg tabletIndications: Diverticulitis Take 1 Tablet (0.125 mg) by mouth every 4 hours if needed for Colic. 30 Tablet 3 Active amoxicillin-clavul anate 875-125 mg tablet (AUGMENTIN)Indicat ions:Diverticuliti s Take 1 tablet three times daily for 7 days for diverticulitis 21 Tablet 3 3 Active triamcinolone (ARISTOCORT; KENALOG) 0.1 % creamIndications:C hronic eczema Apply topically to affected area(s) two times daily. 80 g 2 3 Active ipratropium (ATROVENT NASAL) 21 mcg (0.03 %) nasal sprayIndications:P urulent postnasal drainage Inhale 2 Sprays into affected nostril(s) three times daily. [place] dose in each nostril. 30 mL 11 3 Active atorvastatin (LIPITOR) 40 mg tabletIndications: Hyperlipidemia, unspecified hyperlipidemia type TAKE 1 TABLET(40 MG) BY MOUTH DAILY WITH THE EVENING MEAL 30 Tablet 4 Active levothyroxine (SYNTHROID) 50 mcg tabletIndications: Hypothyroidism (acquired) TAKE 1 TABLET(50 MCG) BY MOUTH BEFORE BREAKFAST 30 Tablet 4 Active levothyroxine (SYNTHROID) 50 mcg tabletIndications: Hypothyroidism (acquired) Take 1 Tablet (50 mcg) by mouth before breakfast. 90 Tablet 4 024 Discontinued atorvastatin (LIPITOR) 40 mg tabletIndications: Hyperlipidemia, unspecified hyperlipidemia type Take 1 Tablet (40 mg) by mouth once daily with evening meal. 90 Tablet 4 024 Discontinued Active Problems Problem Noted Date Diagnosed Date Hypothyroidism (acquired) 07/12/2020 Hyperlipidemia 07/12/2020 Chronic eczema 07/12/2020 Arthritis of right knee 07/12/2020 Diverticulosis 07/12/2020 Resolved Problems Problem Noted Date Diagnosed Date Resolved Date Brugada syndrome 07/12/2020 12/27/2020 Encounters Date Type Department Care Team Description 08/07/2024 Nurse Triage [facility] [address] [place] [address] Olimpia Reyes MD Blood In Stool 08/06/2024 Refill [facility] [address] [place] [address] Olimpia Reyes MD Refill Request (Levothyroxine, Atorvastatin) 08/03/2024 Refill [facility] [address] [place] [address] Olimpia Reyes MD Refill Request (Atorvastatin, Levothyroxine) from Last 3 Months Immunizations Name Administration Dates Next Due Amb Influenza, Inactivated A IIV4 (Age 65+ Years) Preserv Free 06/24/2020 COVID-19 vaccine ([employer] NTech 30mcg/0.3mL) PF, MDV 11/30/2020,11/09/2020 Hepatitis A (Adult) 02/11/2014,07/16/2013 Influenza A (H1N1), Inactivated 10/25/2009 Influenza A (H1N1), Inactiva lucinda (Age >=3 Years) 10/25/2009 Influenza Virus, Unspecified 08/06/2016, 05/31/2012,06/14/2011,07/31 Influenza, High-dose Inactivated 019,07/01/2016,06/15/2015,07/16 Influenza, High-dose Quadriv alent Inactivated 06/27/2023,06/15/2022,06/21/2021 Influenza, IIV3 (Age 6-35 mos) 06/14/2010,2008,07/05/2008 Influenza, IIV3 (Age >=3 years) 06/16/20 14,07/03/2012,05/31/2012,06/18,06/14/2010,07/05/2008,07/31/2007 ,07/31/2003 Influenza, IIV4 06/30/2017 Influenza, Inactivated IIV3 (Age 65+ Years) Preserv Free 07/17/2018 Pneumococcal Poly,23-Valent (Pneumovax) 03/08/2006 Pneumococcal conj 13-Valent (Prevnar 13) 06/15/2015 RSV, Recombinant ADJ Reconst ituted (Arexvy 120MCG/0.5mL) 07/25/2023 Td (Age >=7 Years) 08/06/2002 Tdap 01/06/2013 Zoster (Shingrix-RZV, recombinant) 05/22/2019, Family History Medical History Relation Name Comments Cancer-prostate Brother Heart Disease Child Genetic vascul ar/heart disease affecting 3 children--2 daughters and 1 son have . Cancer-breast No Family History Relation Name Status Comments Brother Child Social History Tobacco Use Types Packs/Day Years Used Date Smoking Tobacco: Never Smokeless Tobacco: Never Tobacco Cessation:Counseling Given: Yes Alcohol Use Standard Drinks/Week Comments Not Currently 0 (1 standard drink = 0.6 oz pur e alcohol) PHQ-2 Answer Date Recorded PHQ-2 TOTAL SCORE 0 08/20/2023 Social Connections Answer Date Recorded Frequency of Communication with Friends and Fami ly Not on file 01/19/2023 Financial Resource Strain Answer Date R ecorded Difficulty of Paying Living Expenses 3 01/18/2022 Difficulty of Paying Living Expenses Not on file 01/18/2022 Food Insecurity Answer Date Recorded Worried About Running Out of Food in the Last Ye ar 1 01/18/2022 Transportation Needs Answer Date Record ed Lack of Transportation (Medical) 1 01/18/2022 Housing Stability Answer Date Recorded Unable to Pay for Housing in the Last Year 1 01/18/2022 Sex and Gender Information Value Date Recorded Sex Assigned at Not on file Gender Identity Not on file Sexual Orientation Not on file Obstetrics History Last Filed Vital Signs Vital Sign Reading Time Taken Comments Blood Pressure 137/88 08/20/2023 2:11 PM PRACTICE PROFESSIONAL Pulse 82 08/20/2023 2:11 PM PRACTICE PROFESSIONAL Temperature 36.6 ??C (97.9 ??F) 05/24/2023 8:53 AM CD T Respiratory Rate 16 12/30/2013 3:00 AM CDT Oxygen Saturation 100% 08/20/2023 2:11 PM PRACTICE PROFESSIONAL Inhaled Oxygen Concentration - - Weight 57.5 kg (126 lb 11.2 oz) 08/20/2023 2:11 PM PRACTICE PROFESSIONAL Height 162.6 cm (5' 4) 08/20/2023 2:11 PM PRACTICE PROFESSIONAL Body Mass Index 21.75 08/20/2023 2:11 PM PRACTICE PROFESSIONAL Plan of Treatment Upcoming Encounters Date Type Department Care Team (Late st Contact Info) Description 08/19/2024 9:00 AM PRACTICE PROFESSIONAL Ancillary Procedure [facility] [address] [place] [address] 08/25/2024 8:25 AM PRACTICE PROFESSIONAL Office Visit [facility] [address] [place] [address] Olimpia Reyes MD [address] [place] [address] Health Maintenance Due Date Last Done Comments Tetanus booster 01/06/2023 01/06/2013, 08/06/2002 COVID-19 vaccine series ( season) 2024 07/04/2023, 03/11/2023, 07/16/2022, Additional history exists Influenza for age 65+ 05/31/2024 06/27/2023 , 06/15/2022, 06/21/2021, Additional history exists BMI (ht and wt on same day) for age 18+ 08/20/2024 08/20/2023, 08/16/2022, 01/18/2022, Additional history exists Depression screening for age 12+ 08/20/2024 08/20/2023, 08/16/2022, 08/14/2022, Additional history exists Medicare Wellness for age 65+ 08/20/2024, 08/16/2022, 08/03/2021, Additional history exists Tdap Completed 01/06/2013 Pneumococcal series for age 65+ Completed 5, 03/08/2006 Zoster (shingles) series for age 50+ Completed 05/22/2019, 02/13/2019 DEXA/DXA scan for age 65+ Completed 08/07/2021 RSV vaccine for adults or Completed 07/25/2023 Procedures Procedure Name Priority Date/Time Associated Diagnosis Comments XR DXA BONE DENSITY 2 SITES AXIAL Routine 08/07/2021 1:54 PM PRACTICE PROFESSIONAL Menopause from Last 3 Months or Most Recently Relevant to Health Maintenance Results * XR DXA BONE DENSITY 2 SITES AXIAL (08/07/2021 1:54 PM PRACTICE PROFESSIONAL) Anatomical Region Laterality Modality Spine, HIPS, HIPL, HIPR Other Impressions 08/14/2021 8:26 AM PRACTICE PROFESSIONAL Osteopenia. RECOMMENDATIONS: The National Osteoporosis Foundation recommends pharmacologic treatment for patients with T-scores of -2.5 or less, patients with prior history of fragility fractures, or patients with 10-year probability of greater than 3% at hips or greater than 20% of suffering major osteoporotic fractures. Recommend continued optimization of calcium and vitamin D intake through dietary means and/or supplementation and regular exercise. Consider pharmacologic therapy for osteopenia with increased fracture risk. Follow-up bone density reading in 2 years if therapy initiated to assess therapeutic efficacy. Laura Wu PA-C [facility] 08/14/2021 Narrative 08/14/2021 8:26 AM PRACTICE PROFESSIONAL For Patients: Results are automatically released to your [facility] ([employer]) account once available, in compliance with federal regulations. This means that you may see your results before your provider has had a chance to review them. Please allow 2-3 business days for your provider to comment on the results. XR DXA Bone Mineral Density (BMD) EXAM LOCATION: [address] [address] PATIENT NAME: Megha Ling DATE OF : 1940 EXAM DATE: 08/07/2021 REQUESTING PROVIDER: Olimpia Reyes MD GENDER AT : female HEIGHT: 5' 4.96 (08/03/2021) WEIGHT: ??134 lb (08/03/2021) MENOPAUSAL STATUS: Postmenopausal RACE/ETHNICITY: White RISK FACTORS: Family History of Osteoporosis and White Race CURRENT MEDICATION FOR BONE LOSS: NONE INDICATION: Follow-up of existing osteopenia COMPARISON DATE(S): None DXA scans are compared to prior studies for a patient only when the two (or more) studies were performed on the same scanner. It is not possible to compare data generated on one scanner to data from another because there are not standards in DXA equipment. This applies even if the two scanners are made by the same snack bar cook. PROCEDURE: Dual-energy x-ray absorptiometry performed with routine technique. Reporting is completed in the form of a T-score. The T-score represents the standard deviation from peak bone mass based on young healthy adult. A Z-score is used for diagnosis in premenopausal women, and for men under the age of 50. FINDINGS: RESULT LUMBAR SPINE L1 - L4 ??BMD: 1.042 g/cm2 T-Score: - 1.2 Z-Score: + 0.8 Change from prior: ??None RESULTS FEMUR Left femoral neck BMD: 0.766 g/cm2 T-Score: - 2.0 Z-Score: + 0.3 Change from prior: ??None Right femoral neck BMD: 0.839 g/cm2 T-Score: - 1.4 Z-Score: + 0.8 Change from prior: ??None Left hip BMD: 0.812 g/cm2 T-Score: - 1.6 Z-Score: + 0.6 Change from prior: ??None Right hip BMD: 0.805 g/cm2 T-Score: - 1.6 Z-Score: + 0.5 Change from prior: ??None WHO criteria: Normal: T-score at or above -1 SD Osteopenia: T-score between -1.1 and -2.4 SD Osteoporosis: T-score at or below -2.5 SD FRAX RISK CALCULATION (USED FOR OSTEOPENIA ONLY): 10-year probability of major osteoporotic fracture: 14.6%. 10-year probability of hip fracture: 4.4%. Olimpia Reyes MD DEXA from Last 3 Months or Most Recently Relevant to Health Maintenance Care Teams Robotic Toy Inventor Relationship Specialty Start Date End Date Olimpia Reyes MD [address] [place] [address] PCP - General Family Practice 06/24/20
[2024-08-07 11:32] LABS: Slide Review Reflex No
[2024-08-07 11:32] LABS: Creatinine, Point-of-Care* 0.8 mg/dl (0.6-1.3)
[2024-08-07 11:39] LABS: Albumin* 4.3 g/dL (3.3-5.0); Chloride* 99 mmol/L (96-114); Potassium* 3.9 mmol/L (3.6-5.1); Sodium* 132 mmol/L (135-149)
[2024-08-07 11:41] LABS: Bilirubin Total* 1.2 mg/dL (0.1-1.5); Creatinine* 0.7 mg/dL (0.5-1.5); Est. Creatinine Clearance* 36.81; Estimated Glomerular Filt Rate 86 ml/min
[2024-08-07 11:42] LABS: Alanine Aminotransferase* 21 U/L (4-35); Alkaline Phosphatase* 63 U/L (40-150); Anion Gap 8 mEq/L (7-15); Aspartate Amino Transferase* 37 U/L (12-35); Blood Urea Nitrogen* 22 mg/dL (7-30); Carbon Dioxide* 25 mmol/L (20-32); Total Protein* 7.6 g/dL (6.0-8.3)
[2024-08-07 11:43] LABS: Calcium* 8.9 mg/dL (8.4-10.6); Glucose* 90 mg/dL (60-115)
[2024-08-07 11:45] LABS: C Reactive Protein* 6.3 mg/dL (0.5-1.0)
[2024-08-07 13:12] VITALS: BP 133/64; PULSE 77; RESP 18; O2SAT 98
[2024-08-07] MEDS: ERTAPENEM 1 GM in 0.9 % SODIUM CHLORIDE Mini-bag 100 ML IVPB (13:33)
--- NOTE | 2024-08-07 13:37 | P.GSCN_ITS ---
History of Present Illness Consult details Date Seen: 08/07/24 Consult date: 08/07/24 Narrative: Patient is an 83-year-old female who presents for cramping abdominal pain. The patient has a history diverticulitis, and on Saturday she started to feel some cramping abdominal pain similar to previous episodes. The pain is not gotten worse, but today she began to have more mucus-like stools which caused her to come in. Yesterday she started a clear liquid diet. She does have some Augmentin at home, but did not start taking it. She denies any fevers. She has never had abdominal surgery before. Her last colonoscopy was a little over 3 years ago. She denies any history of polyps. She states that she has a flare-up of diverticulitis every 2-3 years. She has never been hospitalized for it or had any complications from it. 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 Her son is at the bedside and very supportive. Review of Systems Status of ROS: Reports: 10 or more systems reviewed and unremarkable except as noted in History and below [facility] Medical History Encounter for preprocedure screening laboratory testing for severe acute respiratory syndrome coronavirus 2 (SARS-CoV-2) ?Z01.812 - Encounter for preprocedural laboratory examination (ICD-10) ?Z20.822 - Contact with and (suspected) exposure to covid-19 (ICD-10) Surgical History History of phacoemulsification of cataract of right eye with intraocular lens implantation (01/04/21) ?Z98.41 - Cataract extraction status, right eye (ICD-10) ?Z96.1 - Presence of intraocular lens (ICD-10) History of phacoemulsification of cataract of left eye with intraocular lens implantation (01/18/21) ?Z98.42 - Cataract extraction status, left eye (ICD-10) ?Z96.1 - Presence of intraocular lens (ICD-10) Social History Smoking Status: Never smoker Do you use any of these nicotine containing products: None Second hand tobacco smoke exposure: No How often do you have a drink containing alcohol: never AUDIT-C Alcohol total score: 0 Non-prescribed substance use: denies use service: No Meds Home Medications and Allergies Home Medications ?Medication ?Instructions ?Recorded ?Confirmed ?Type aspirin 81 mg tablet,delayed 81 mg PO DAILY 05/03/23 08/16/23 History release (Adult Aspirin Regimen) atorvastatin 40 mg tablet 40 mg PO DAILY 05/03/23 08/16/23 History levothyroxine 50 mcg tablet 50 mcg PO DAILY 05/03/23 08/16/23 History multivitamin (Daily Multi-Vitamin 1 tab PO DAILY 05/03/23 08/16/23 History tablet) Allergies Allergy/AdvReac Type Severity Reaction Status Date / Time sulfamethoxazole (From Allergy Intermediate Verified 08/07/24 12:01 Bactrim) trimethoprim (From Bactrim) Allergy Intermediate Verified 08/07/24 12:01 diltiazem Allergy Unknown Verified 08/07/24 12:01 metronidazole (From Flagyl) Allergy Unknown Verified 08/07/24 12:01 calcium channel blockers Allergy Intermediate Uncoded 08/07/24 12:01 Exam Narrative: Exam Narrative: General: Alert and oriented, no acute distress Respiratory: Equal breath rise bilaterally, maintained on room air CV: Well perfused Abdomen: Soft, nontender nondistended. No guarding or rebound. No evidence of peritonitis. Const: Vital Signs, click to edit/add: Vital Signs - 24 hr 08/07/24 10:25 08/07/24 13:12 Temperature 97.7 F Pulse Rate [Pulse Oximeter] 81 77 Respiratory Rate 20 18 Blood Pressure [Le ft Upper Arm] 150/77 H 133/64 Pulse Oximetry 99 98 Oxygen Delivery Me thod Room Air Room Air Results Labs Labs: Abnormal lab results 08/07/24 Range/Units 11:15 Neut % (Auto) 78.6 H (42.0-72.0) % Lymph % (Auto) 11.6 L (20-44) % Sodium 132 L (135-149) mmol/L AST 37 H (12-35) U/L C-Reactive Protein 6.3 H (0.5-1.0) mg/dL Diabetes panel 08/07/24 Range/Units 11:15 Sodium 132 L (135-149) mmol/L Potassium 3.9 (3.6-5.1) mmol/L Chloride 99 (96-114) mmol/L Carbon Dioxide 25 (20-32) mmol/L BUN 22 (7-30) mg/dL Creatinine 0.7 (0.5-1.5) mg/dL Glucose 90 (60-115) mg/dL Calcium 8.9 (8.4-10.6) mg/dL AST 37 H (12-35) U/L ALT 21 (4-35) U/L Alkaline Phosphatase 63 (40-150) U/L Total Protein 7.6 (6.0-8.3) g/dL Albumin 4.3 (3.3-5.0) g/dL Calcium panel 08/07/24 Range/Units 11:15 Calcium 8.9 (8.4-10.6) mg/dL Albumin 4.3 (3.3-5.0) g/dL Pituitary panel 08/07/24 Range/Units 11:15 Sodium 132 L (135-149) mmol/L Potassium 3.9 (3.6-5.1) mmol/L Chloride 99 (96-114) mmol/L Carbon Dioxide 25 (20-32) mmol/L BUN 22 (7-30) mg/dL Creatinine 0.7 (0.5-1.5) mg/dL Glucose 90 (60-115) mg/dL Calcium 8.9 (8.4-10.6) mg/dL Adrenal panel 08/07/24 Range/Units 11:15 Sodium 132 L (135-149) mmol/L Potassium 3.9 (3.6-5.1) mmol/L Chloride 99 (96-114) mmol/L Carbon Dioxide 25 (20-32) mmol/L BUN 22 (7-30) mg/dL Creatinine 0.7 (0.5-1.5) mg/dL Glucose 90 (60-115) mg/dL Calcium 8.9 (8.4-10.6) mg/dL Total Bilirubin 1.2 (0.1-1.5) mg/dL AST 37 H (12-35) U/L ALT 21 (4-35) U/L Alkaline Phosphatase 63 (40-150) U/L Total Protein 7.6 (6.0-8.3) g/dL Albumin 4.3 (3.3-5.0) g/dL All other labs normal. Imaging Abdomen CT scan report/results: report reviewed and image reviewed Progress Note:A&P Assessment and plan (1) Diverticulitis of intestine with abscess: Status: Acute Assessment and Plan: Patient presents for episode of diverticulitis complicated with intra-abdominal abscess. Vital signs stable with benign abdominal exam at this time. No evidence of leukocytosis-left shift, CRP is elevated at 6.3. A CT abdomen/pelvis was obtained and demonstrates a 1.7 cm abscess within the pelvis. This is not an area amendable to drainage. Given size and location would recommend medical management with IV antibiotics. -admit to the hospitalist service -IV ertapenem -clear liquids diet -trend fever and inflammatory markers Please call surgery with any concerns, acute clinical changes or questions.
--- NOTE | 2024-08-07 14:18 | ED.NURSE ---
Report given to zay Nowak RN. Pt to room 249.
[2024-08-07 14:43] VITALS: BP 161/77; PULSE 75; RESP 18; TEMP 36.6; O2SAT 100; BMI 22.0
[2024-08-07 15:00] VITALS: PULSE 75; RESP 18
--- NOTE | 2024-08-07 15:58 | PM.IMHP1 ---
Hospitalist- H&P: HPI History of Present Illness Date Seen: 08/07/24 Chief complaint: diverticulitis Narrative: Megha Ling is a 83 year old female admitted through the emergency department with 2 days of left lower quadrant abdominal cramping and blood tinged mucus he stools. She has had no fever. She has been eating a clear liquid diet. No vomiting. She has a longstanding history of diverticulitis. In 2007 she was initially diagnosed with diverticulitis at [facility]. She estimates that she has had approximately 1 episode of diverticulitis per year since then. She has had a CT scan for the initial diagnosis as well as a few years ago she had a CT scan confirming diverticulitis. All of her episodes have been managed as outpatients with oral antibiotics. She carries Augmentin with her just in case. She did not start the Augmentin in the last 2 days. She did have a colonoscopy approximately 5 years ago which was normal except for diverticulosis. Other than the crampy pain she reports doing well. She has been eating a clear liquid diet but does report that she is hungry. No previous abdominal surgery. Review of Systems Narrative: She reports feeling well other than the last 2 days of symptoms outlined above [facility] Medical History (Updated 08/07/24 @ 16:16 by Juan Serra MD) Hypothyroid ?E03.9 - Hypothyroidism, unspecified (ICD-10) Hyperlipidemia ?E78.5 - Hyperlipidemia, unspecified (ICD-10) Normal colonoscopy Brugada syndrome ?I49.8 - Other specified cardiac arrhythmias (ICD-10) Encounter for preprocedure screening laboratory testing for severe acute respiratory syndrome coronavirus 2 (SARS-CoV-2) ?Z01.812 - Encounter for preprocedural laboratory examination (ICD-10) ?Z20.822 - Contact with and (suspected) exposure to covid-19 (ICD-10) Surgical History History of phacoemulsification of cataract of right eye with intraocular lens implantation (01/04/21) ?Z98.41 - Cataract extraction status, right eye (ICD-10) ?Z96.1 - Presence of intraocular lens (ICD-10) History of phacoemulsification of cataract of left eye with intraocular lens implantation (01/18/21) ?Z98.42 - Cataract extraction status, left eye (ICD-10) ?Z96.1 - Presence of intraocular lens (ICD-10) Family History (Updated 08/07/24 @ 16:10 by Juan Serra MD) Son Heart disease Brother Prostate cancer Social History (Updated 08/07/24 @ 16:11 by Juan Serra MD) Narrative: She lives independently in a town house in [place]. She is independent in all ADLs. She plays pickleball every day. Closest family is her sister who lives nearby and her son who lives in [place]. He is healthcare power of senior attorney. Code status: Witnessed arrest only. She does not smoke or drink alcohol. What is your current living situation?: I presently have a place to live Problems where you live: no known problems Problems where you live details: no known problems In the past 12 months, utilities in danger of being shut off: no In past 12 months, lack of transportation kept you from medical appts, meetings, work, or getting things needed for daily living: no In the past 12 mos, have been you worried that your food would run out before you had money to buy more?: never true In the past 12 mos, the food you bought just didn't last and you didn't have money to buy more?: never true Highest level of school completed/degree received: Bachelor's degree Smoking Status: Never smoker Do you use any of these nicotine containing products: None Second hand tobacco smoke exposure: No How often do you have a drink containing alcohol: never AUDIT-C Alcohol total score: 0 Non-prescribed substance use: denies use How often does anyone, including family, friends and others, physically hurt you: never How often does anyone, including family, friends and others, insult or talk down to you: never How often does anyone, including family, friends and others, threaten you with harm: never How often does anyone, including family, friends and others, scream or curse at you: never service: No Meds Home Medications and Allergies Home Medications ?Medication ?Instructions ?Recorded ?Confirmed ?Type aspirin 81 mg tablet,delayed 81 mg PO DAILY 05/03/23 08/07/24 History release (Adult Aspirin Regimen) atorvastatin 40 mg tablet 40 mg PO QPM 05/03/23 08/07/24 History levothyroxine 50 mcg tablet 50 mcg PO DAILY 05/03/23 08/07/24 History multivitamin (Daily Multi-Vitamin 1 tab PO DAILY 05/03/23 08/07/24 History tablet) Allergies Allergy/AdvReac Type Severity Reaction Status Date / Time Calcium Channel Blocking Allergy Intermediate Verified 08/07/24 15:46 Agent Dilt sulfamethoxazole (From Allergy Intermediate Verified 08/07/24 12:01 Bactrim) trimethoprim (From Bactrim) Allergy Intermediate Verified 08/07/24 12:01 diltiazem Allergy Unknown Verified 08/07/24 12:01 metronidazole (From Flagyl) Allergy Unknown Verified 08/07/24 12:01 Exam Narrative: Exam Narrative: She is alert and appears in no distress. Oropharynx is normal. Neck is supple without mass or adenopathy. Respirations are clear to auscultation. Breathing is unlabored. Cardiovascular: S1, S2, regular rate and rhythm. No murmur gallop or rub. Abdomen: Bowel sounds active. Abdomen is soft. She has mild to moderate left lower quadrant tenderness on deep palpation in the left lower quadrant. No peritonitis. External genitalia normal. Extremities with trace edema in both legs. Intact pedal pulses. Good capillary refill. Const: Vital Signs, click to edit/add: Vital Signs - 24 hr 08/07/24 10:25 08/07/24 13:12 08/07/24 14:43 Temperature 97.7 F 97.9 F Pulse Rate [Pulse Oximeter] 81 77 75 Respiratory Rate 20 18 18 Blood Pressure [Le ft Arm] 161/77 H Blood Pressure [Le ft Upper Arm] 150/77 H 133/64 Pulse Oximetry 99 98 100 Oxygen Delivery Me thod Room Air Room Air Room Air 08/07/24 14:43 08/07/24 15:00 Temperature Pulse Rate [Pulse Oximeter] 75 Respiratory Rate 18 18 Blood Pressure [Le ft Arm] Blood Pressure [Le ft Upper Arm] Pulse Oximetry 100 Oxygen Delivery Me thod Room Air Documenting provider has reviewed patient's vital signs: yes Hospitalist - H&P: Result Labs Labs: Short CBC 08/07/24 Range/Units 11:15 WBC 7.44 (4.50-11.00) K/uL Hgb 13.0 (12.0-16.0) gm/dL Hct 39.9 (33.0-51.0) % Plt Count 178 (140-440) K/uL BMP 08/07/24 11:15 Sodium 132 L Potassium 3.9 Chloride 99 Carbon Dioxide 25 BUN 22 Creatinine 0.7 Glucose 90 Calcium 8.9 Liver Function 08/07/24 Range/Units 11:15 Total Bilirubin 1.2 (0.1-1.5) mg/dL AST 37 H (12-35) U/L ALT 21 (4-35) U/L Alkaline Phosphatase 63 (40-150) U/L Albumin 4.3 (3.3-5.0) g/dL ECG Attestation: I personally reviewed and interpreted this ECG as follows: (Normal electrocardiogram except minimal nonspecific ST-T changes) ECG interpretation date: 08/07/[address] scan - abdomen: Radiologist's impression: INDICATION: Mucous stools. Cramping. History of diverticulitis. TECHNIQUE: CT abdomen and pelvis acquired with 62 cc of Isovue 370 IV contrast. COMPARISON: CT abdomen and pelvis without contrast 02/25/2022. FINDINGS: Lower chest: Mild bibasilar scarring or atelectasis. Lung bases are otherwise clear. No pleural or pericardial effusions. Pectus deformity, as before. Liver: Fatty change. No focal lesion. Spleen: Unremarkable. Pancreas: Unremarkable. Gallbladder and bile ducts: No calcified stones or biliary ductal dilatation. Kidneys: Small right renal cyst. No urolithiasis or hydronephrosis. Adrenal glands: Unremarkable. GI tract: Colonic diverticulosis with wall thickening and pericolonic stranding of the sigmoid colon in the midline pelvis. An adjacent rim enhancing pericolonic collection measures 17 mm on image 92 of series 2. No bowel obstruction. No free air or free fluid. Lymph nodes: No pathologic lymphadenopathy. Vascular structures: Atherosclerotic disease. No abdominal aortic aneurysm. Pelvic Organs: Bladder and adnexal regions as imaged are unremarkable. Bones: No acute or suspicious osseous abnormality. Degenerative changes spine and pelvis. IMPRESSION: Acute sigmoid diverticulitis in the pelvis with associated 17 mm pericolonic abscess. Dictated by Kal Goyal MD @ 08/07/2024 12:33:03 PM Assessment and Plan Assessment and plan (1) Diverticulitis of intestine with abscess: Problem comment: Recurrent sigmoid diverticulitis now with abscess of 1.7 cm. Not amenable to percutaneous drainage. Medical management. Status: Acute Plan Admit to hospital for monitoring of complications. Will treat with IV antibiotics. Probably will need a prolonged course as outpatient. Surgical consult. Total Time Spent Total Time Spent: Total time spent today is 75 minutes in review of records, evaluation and management and discussion with patient and son about ongoing evaluation management of diverticulitis with abscess and recurrent diverticulitis
[2024-08-07] MEDS: ACETAMINOPHEN 325 MG TABLET 650 MG PO (20:12)
[2024-08-07 20:14] VITALS: BP 140/70; PULSE 65; RESP 16; TEMP 36.4; O2SAT 94
[2024-08-07] MEDS: SODIUM CHLORIDE 0.9 % (FLUSH) 10 ML SYRINGE 5 ML IVF (20:51)
[2024-08-07] MEDS: ATORVASTATIN CALCIUM 40 MG TABLET PO (20:51)
[2024-08-07 23:00] VITALS: BP 140/70; PULSE 66; RESP 16; TEMP 36.6; O2SAT 95
[2024-08-08 03:00] VITALS: BP 109/69; PULSE 67; RESP 16; TEMP 36.8; O2SAT 97
--- NOTE | 2024-08-08 06:25 | PC.NURSE ---
Pt alert, oriented and vitally stable. Pt independent in room, SBA in the halls with walker, tolerated well. Pt continent of B&B, pt stated a small, soft BM around 5 pm, 08/07/24. Tolerating clears. Pt appears to be resting, call light in reach.
[2024-08-08 06:48] LABS: Basophils Absolute Auto 0.03 K/uL (0.00-0.30); Basophils Percent Auto 0.6 % (0.0-3.0); Eosinophils Absolute Auto 0.12 K/uL (0.00-0.50); Eosinophils Percent Auto 2.5 % (0.0-7.0); Hematocrit 36.5 % (33.0-51.0); Hemoglobin* 11.8 gm/dL (12.0-16.0); Lymphocytes Absolute Auto 1.24 K/uL (0.90-2.90); Lymphocytes Percent Auto 25.7 % (20-44); Mean Corpuscular HGB Conc 32 gm/dL (32-36); Mean Corpuscular Hemoglobin 32 pg (26-34); Mean Corpuscular Volume 98 fL (80-100); Monocytes Percent Auto 11.8 % (0.0-11.0); Neutrophils Absolute Auto 2.86 K/uL (1.7-7.0); Neutrophils Percent Auto 59.4 % (42.0-72.0); Platelet Count* 186 K/uL (140-440); RDW Coefficient of Variation % 12.6 % (11.5-15.5); Red Blood Count 3.71 m/uL (4.00-5.20); White Blood Count* 4.82 K/uL (4.50-11.00)
[2024-08-08 07:00] VITALS: BP 124/61; PULSE 67; RESP 16; TEMP 36.1; O2SAT 93
[2024-08-08 07:05] LABS: Chloride* 98 mmol/L (96-114); Potassium* 3.8 mmol/L (3.6-5.1); Sodium* 131 mmol/L (135-149)
[2024-08-08 07:06] LABS: Slide Review Reflex No
[2024-08-08 07:08] LABS: Anion Gap 7 mEq/L (7-15); Carbon Dioxide* 26 mmol/L (20-32); Creatinine* 0.6 mg/dL (0.5-1.5); Est. Creatinine Clearance* 36.81; Estimated Glomerular Filt Rate 89 ml/min
[2024-08-08 07:09] LABS: Blood Urea Nitrogen* 16 mg/dL (7-30); Calcium* 8.6 mg/dL (8.4-10.6); Glucose* 83 mg/dL (60-115)
[2024-08-08 07:11] LABS: C Reactive Protein* 5.2 mg/dL (0.5-1.0)
[2024-08-08] MEDS: MULTIVITAMIN/MINERALS 1 TABLET 1 TAB PO (09:18)
[2024-08-08] MEDS: LEVOTHYROXINE 50 MCG TABLET PO (09:18)
[2024-08-08] MEDS: SODIUM CHLORIDE 0.9 % (FLUSH) 10 ML SYRINGE 5 ML IVF (09:18)
[2024-08-08] MEDS: ASPIRIN 81 MG TABLET EC PO (09:18)
--- NOTE | 2024-08-08 09:24 | PM.IMPN1 ---
Progress Note: A&P Assessment and plan (1) Diverticulitis of intestine with abscess: Problem details: - Recurrent sigmoid diverticulitis now with abscess of 1.7 cm. Not amenable to percutaneous drainage. Appreciate general surgery's recommendations. I have been in contact with Dr. Rodriguez today about this patient. Continue medical management with ertapenem. She will need this as an outpatient as well. - place midline PICC today in anticipation that she will need this for ongoing antibiotics as an outpatient - advanced diet to fulls; if she tolerates this well she can advance to a low residue diet - start probiotic - have PT and OT evaluate for weakness Status: Acute Subjective Time Seen by Provider: 08:26 Date Seen: 08/08/24 Interval history: Megha's sister, Edna, was in the room with her today. Megha feels about the same as yesterday. She continues to have a lot of mucusy discharge from her anus, but the streaks of blood that were in there have resolved. She has not used any pain control other than acetaminophen overnight. She has an appetite, but is afraid to eat because she thinks it will make things worse. She feels a little stronger today, but still generally weak. She has been able to get up to the bathroom with standby assistance overnight. Her sister is concerned about her going home today because Megha lives alone. Most of what she has to do is on 1 level, but her laundry is in the basement. She tells me that she has thought about her conversation with Dr. Munoz and is leaning towards getting surgery once this has resolved to prevent further episodes. Exam Narrative: Exam Narrative: General: No acute distress. Appears fatigued. Awake, alert, oriented x3. No pallor. No jaundice. Oropharynx: Clear. Mucous membranes moist. Cardiovascular: Regular rate and rhythm. No murmurs, gallops, or rubs. Respiratory: Clear to auscultation bilaterally. No wheezes or crackles. Abdomen: Bowel sounds present. Soft, nondistended, point tender in left lower quadrant, no rebound tenderness or guarding. Extremities: No pedal edema. Const: Vital Signs, click to edit/add: Vital Signs - 24 hr 08/07/24 10:25 08/07/24 13:12 08/07/24 14:43 Temperature 97.7 F 97.9 F Pulse Rate [Pulse Oximeter] 81 77 75 Respiratory Rate 20 18 18 Blood Pressure [Le ft Arm] 161/77 H Blood Pressure [Le ft Upper Arm] 150/77 H 133/64 Pulse Oximetry 99 98 100 Oxygen Delivery Me thod Room Air Room Air Room Air 08/07/24 14:43 08/07/24 15:00 08/07/24 20:14 Temperature 97.5 F L Pulse Rate [Pulse Oximeter] 75 65 Respiratory Rate 18 18 16 Blood Pressure [Le ft Arm] 140/70 H Blood Pressure [Le ft Upper Arm] Pulse Oximetry 100 94 Oxygen Delivery Me thod Room Air Room Air 08/07/24 23:00 08/07/24 23:00 08/08/24 03:00 Temperature 97.8 F 98.2 F Pulse Rate [Pulse Oximeter] 66 66 67 Respiratory Rate 16 16 16 Blood Pressure [Le ft Arm] 140/70 H 109/69 Blood Pressure [Le ft Upper Arm] Pulse Oximetry 95 97 Oxygen Delivery Me thod Room Air Room Air Labs Labs: Laboratory Results - last 24 hr 08/07/24 08/07/24 08/08/24 11:00 11:15 05:27 WBC 7.44 4.82 RBC 4.05 3.71 L Hgb 13.0 11.8 L Hct 39.9 36.5 MCV 99 98 MCH 32 32 MCHC 33 32 RDW Coeff of Mary 12.7 12.6 Plt Count 178 186 Neut % (Auto) 78.6 H 59.4 Lymph % (Auto) 11.6 L 25.7 [place] % (Auto) 9.0 11.8 H Eos % (Auto) 0.4 2.5 Baso % (Auto) 0.3 0.6 Neut # (Auto) 5.80 2.86 Lymph # (Auto) 0.90 1.24 [place] # (Auto) 0.70 0.60 Eos # (Auto) 0.03 0.12 Baso # (Auto) 0.02 0.03 Abs Immat Gran (auto) 0.01 0.00 Imm/Tot Granulo (auto) 0.1 0.0 Sodium 132 L 131 L Potassium 3.9 3.8 Chloride 99 98 Carbon Dioxide 25 26 Anion Gap 8 7 BUN 22 16 Creatinine 0.7 0.6 Estimated Creat Clear 36.81 36.81 Estimated GFR 86 89 Glucose 90 83 Lactate 1.0 Calcium 8.9 8.6 Total Bilirubin 1.2 AST 37 H ALT 21 Alkaline Phosphatase 63 C-Reactive Protein 6.3 H 5.2 H Total Protein 7.6 Albumin 4.3 POC Creatinine 0.8
[2024-08-08] MEDS: ERTAPENEM 1 GM in 0.9 % SODIUM CHLORIDE Mini-bag 100 ML IVPB (12:16)
[2024-08-08] MEDS: LACTOBACILLUS ACIDOPHILUS 1 TABLET 1 TAB PO (12:21)
[2024-08-08 15:00] VITALS: PULSE 67; RESP 16
--- NOTE | 2024-08-08 15:27 | P.DS_ITS ---
DS: Providers Provider Date Seen: 08/08/24 Date of admission: 08/07/24 19:33 Primary care physician: Olimpia Reyes MD Admitting Clinician: Aniyah Moreno MD Consults: 08/08/24 08:51 Consult to Occupational Therapy [CONS] Routine Comment: Reason(s) for OT Consult:: Evaluate and Treat Any Restrictions?:: No Restrictions Consult to Physical Therapy [CONS] Routine Comment: Reason(s) for PT Consult:: Evaluate and Treat Any Restrictions?:: No Restrictions Attending Physician on discharge: Aniyah Moreno MD DS: Diagnosis Discharge Diagnosis (1) Diverticulitis of intestine with abscess: Status: Acute Problem details: - Recurrent sigmoid diverticulitis now with abscess of 1.7 cm. Not amenable to percutaneous drainage. Appreciate general surgery's recommendations. I have been in contact with Dr. Rodriguez today about this patient. Continue medical management with ertapenem. She will need this as an outpatient as well. - place midline PICC today in anticipation that she will need this for ongoing antibiotics as an outpatient - advanced diet to fulls; if she tolerates this well she can advance to a low residue diet - start probiotic - have PT and OT evaluate for weakness DS: Summary Hospital Course Hospital Course: Megha was admitted to the hospital with abdominal pain and diarrhea, diagnosed with diverticulitis flare + 17mm pericolonic abscess. Treated with IV Ertapeneum. Seen by Dr. Munoz of General Surgery, no surgical interventions identified during stay. Diarrhea improved and remained afebrile during stay. Tolerating bland diet on hospital day 1, requesting discharge home. PICC line has been placed and Ertapenem scheduled for outpatient IV infusion once daily for the next 12 days to complete 2 week course of abx. Comorbidities remained stable, patient will f/u with General Surgery and PCP as an outpatient. Status at Discharge Functional status at discharge: independent ambulation Overall status at discharge: patient is progressing back to baseline Time Spent with Patient Time attestation: Total time spent providing and/or coordinating discharge services: Time spent: Less than 30 minutes Exam Narrative: Exam Narrative: Nontoxic, ambulating in room. Tolerated po intake without symptoms just prior to my visit. Please see Dr. Quintana's note from 08/08 for detailed exam. Const: Vital Signs, click to edit/add: Vital Signs - 24 hr 08/07/24 20:14 08/07/24 23:00 08/07/24 23:00 Temperature 97.5 F L 97.8 F Pulse Rate [Pulse Oximeter] 65 66 66 Respiratory Rate 16 16 16 Blood Pressure [Le ft Arm] 140/70 H 140/70 H Pulse Oximetry 94 95 Oxygen Delivery Me thod Room Air Room Air 08/08/24 03:00 08/08/24 07:00 08/08/24 07:00 Temperature 98.2 F 97.0 F L Pulse Rate [Pulse Oximeter] 67 67 67 Respiratory Rate 16 16 16 Blood Pressure [Le ft Arm] 109/69 124/61 Pulse Oximetry 97 93 Oxygen Delivery Me thod Room Air Room Air DS: Data Data Completed and Pending Labs on day of discharge: Labs from last 24 hours 08/08/24 05:27 WBC 4.82 RBC 3.71 L Hgb 11.8 L Hct 36.5 MCV 98 MCH 32 MCHC 32 RDW Coeff of Mary 12.6 Plt Count 186 Neut % (Auto) 59.4 Lymph % (Auto) 25.7 [place] % (Auto) 11.8 H Eos % (Auto) 2.5 Baso % (Auto) 0.6 Neut # (Auto) 2.86 Lymph # (Auto) 1.24 [place] # (Auto) 0.60 Eos # (Auto) 0.12 Baso # (Auto) 0.03 Abs Immat Gran (auto) 0.00 Imm/Tot Granulo (auto) 0.0 Sodium 131 L Potassium 3.8 Chloride 98 Carbon Dioxide 26 Anion Gap 7 BUN 16 Creatinine 0.6 Estimated Creat Clear 36.81 Estimated GFR 89 Glucose 83 Calcium 8.6 C-Reactive Protein 5.2 H Discharge Plan Discharge Disposition: Home, Self-Care Date of Admission: 08/07/24 19:33 Attending Provider on Discharge: Surekha Colvin Discharge Medications: New ertapenem 1 gram Recon Soln 1 g IVPB Q24H 12 Days Qty: 5 0RF Continued atorvastatin 40 mg tablet 40 mg PO QPM levothyroxine 50 mcg tablet 50 mcg PO DAILY aspirin [Adult Aspirin Regimen] 81 mg tablet,delayed release (DR/EC) 81 mg PO DAILY multivitamin [Daily Multi-Vitamin] Tablet 1 tab PO DAILY Discharge Orders: Discharge Order (Routine); Ordered 11/09/24 Ordered By: Surekha Colvin Patient Education: Diverticulitis (DC), Diverticulitis Diet (DC) Additional Instructions: Continue bland diet and daily return to hospital for IV antibiotics. If you have more pain, fevers, or any other concerns, return to ER. Activity Level: Activity as Tolerated and No strenuous activity Diet Detail: low fiber Follow Up Appointments: Carmina Munoz MD [Staff Physician] - (appt the week of 08/24 please, diverticulitis f/u) Olimpia Reyes MD [Primary Care Provider] - (next week for hospital f/u if possible) Forms: [employer] Info Instructions
--- NOTE | 2024-08-08 16:13 | PC.NURSE ---
Discharged to home today at 1610 accompanied by family. VSS. denies Pain, sob, n/v. Reg Bm today. tolerating a full liquid and a soft diet. Midline on left upper arm SL. Patient instructed to return tomorrow for Antibiotic infusion. belongings sheet and discharge instructions signed.
== END 2024-08-08 16:10 | disposition home or self-care (01) | DRG 391 ==
LOC: ED 11:25 → MEDSURG 14:17
PROVIDERS: Admitting Provider Family Medicine; Emergency Provider Family Medicine; PCP Family Medicine; Visit Provider Student in an Organized Health Care Education/Training Program
DX: K57.20 Diverticulitis of large intestine with perforation and abscess without bleeding (principal); K65.1 Peritoneal abscess; I49.8 Other specified cardiac arrhythmias; E03.9 Hypothyroidism, unspecified; E78.5 Hyperlipidemia, unspecified
CPT/HCPCS: 36410; 36415; 74177; 80048; 80053; 82565; 83605; 85025; 86140; 97161; 97165; 99284; 99285; A4221; A9153; A9270; C1751; J1335; Q9967

== ENCOUNTER 2024-08-19 09:00 | Outpatient (RCR) | payer OTHER, SELFPAY ==
[2024-08-09] MEDS: ERTAPENEM 1 GM in 0.9 % SODIUM CHLORIDE Mini-bag 100 ML IVPB (09:20)
[2024-08-09 10:34] VITALS: BP 133/75; PULSE 75; RESP 18; TEMP 36.6; O2SAT 96
[2024-08-10 09:16] VITALS: BP 115/72; PULSE 78; RESP 16; TEMP 36.2; O2SAT 97
[2024-08-10] MEDS: ERTAPENEM 1 GM in 0.9 % SODIUM CHLORIDE Mini-bag 100 ML IVPB (09:33)
[2024-08-11 09:05] VITALS: BP 107/65; PULSE 69; RESP 16; TEMP 35.9; O2SAT 99
[2024-08-11] MEDS: ERTAPENEM 1 GM in 0.9 % SODIUM CHLORIDE Mini-bag 100 ML IVPB (09:14)
[2024-08-11] MEDS: SODIUM CHLORIDE 0.9 % (FLUSH) 10 ML SYRINGE IVF (09:52)
[2024-08-12 09:01] VITALS: BP 106/64; PULSE 87; RESP 16; TEMP 36.1; O2SAT 92
[2024-08-12] MEDS: ERTAPENEM 1 GM in 0.9 % SODIUM CHLORIDE Mini-bag 100 ML IVPB (09:22)
[2024-08-12] MEDS: SODIUM CHLORIDE 0.9 % (FLUSH) 10 ML SYRINGE IVF ×2 (09:22→09:45)
[2024-08-13 09:14] VITALS: BP 111/70; PULSE 72; RESP 16; TEMP 35.8; O2SAT 96
[2024-08-13] MEDS: ERTAPENEM 1 GM in 0.9 % SODIUM CHLORIDE Mini-bag 100 ML IVPB (09:42)
[2024-08-13] MEDS: SODIUM CHLORIDE 0.9 % (FLUSH) 10 ML SYRINGE IVF (09:42)
[2024-08-14] MEDS: ERTAPENEM 1 GM in 0.9 % SODIUM CHLORIDE Mini-bag 100 ML IVPB (09:16)
[2024-08-14] MEDS: SODIUM CHLORIDE 0.9 % (FLUSH) 10 ML SYRINGE IVF ×2 (09:16→09:45)
[2024-08-15 09:07] VITALS: BP 128/71; PULSE 67; RESP 18; TEMP 36.4; O2SAT 96
[2024-08-15] MEDS: SODIUM CHLORIDE 0.9 % (FLUSH) 10 ML SYRINGE IVF (09:19)
[2024-08-15] MEDS: ERTAPENEM 1 GM in 0.9 % SODIUM CHLORIDE Mini-bag 100 ML IVPB (09:19)
[2024-08-15 10:04] VITALS: BP 110/68; PULSE 68; RESP 18; TEMP 36.4; O2SAT 96
[2024-08-16 10:05] VITALS: BP 133/62; PULSE 70; RESP 18; TEMP 36.1; O2SAT 99
[2024-08-16] MEDS: ERTAPENEM 1 GM in 0.9 % SODIUM CHLORIDE Mini-bag 100 ML IVPB (10:07)
[2024-08-16] MEDS: SODIUM CHLORIDE 0.9 % (FLUSH) 10 ML SYRINGE IVF (10:08)
[2024-08-17 08:29] VITALS: BP 136/65; PULSE 69; RESP 16; TEMP 36.2; O2SAT 95
[2024-08-17] MEDS: SODIUM CHLORIDE 0.9 % (FLUSH) 10 ML SYRINGE IVF ×2 (08:40→09:13)
[2024-08-17] MEDS: ERTAPENEM 1 GM in 0.9 % SODIUM CHLORIDE Mini-bag 100 ML IVPB (08:41)
[2024-08-18 09:11] VITALS: BP 147/65; PULSE 73; RESP 16; TEMP 36.2; O2SAT 95
[2024-08-18] MEDS: SODIUM CHLORIDE 0.9 % (FLUSH) 10 ML SYRINGE IVF ×2 (09:19→10:02)
[2024-08-18] MEDS: ERTAPENEM 1 GM in 0.9 % SODIUM CHLORIDE Mini-bag 100 ML IVPB (09:19)
[2024-08-19 09:39] VITALS: BP 131/74; PULSE 73; RESP 16; TEMP 36.4; O2SAT 97
[2024-08-19] MEDS: SODIUM CHLORIDE 0.9 % (FLUSH) 10 ML SYRINGE IVF (09:48)
[2024-08-19] MEDS: ERTAPENEM 1 GM in 0.9 % SODIUM CHLORIDE Mini-bag 100 ML IVPB (09:48)
[2024-08-20 08:56] VITALS: BP 123/66; PULSE 82; RESP 16; TEMP 36; O2SAT 94
[2024-08-20] MEDS: SODIUM CHLORIDE 0.9 % (FLUSH) 10 ML SYRINGE IVF ×2 (09:06→09:51)
[2024-08-20] MEDS: ERTAPENEM 1 GM in 0.9 % SODIUM CHLORIDE Mini-bag 100 ML IVPB (09:06)
== END 2025-02-06 23:59 | disposition home or self-care (01) ==
LOC: CCIC 09:00
PROVIDERS: PCP Family Medicine; Referring Provider Family Medicine; Visit Provider Family Medicine
DX: K57.80 Diverticulitis of intestine, part unspecified, with perforation and abscess without bleeding (principal)
CPT/HCPCS: 96365; 96374; 99211; G0463; A4221; J1335

== ENCOUNTER 2024-10-26 08:15 | Outpatient (CLI) | payer OTHER, SELFPAY ==
--- NOTE | 2024-10-26 10:04 | P.ANES_ITS ---
Anesthesia Charges Start Date/Time Anesthesia Start Date: 10/26/24 Anesthesia Start Time: 09:39 Stop Date/Time Anesthesia Stop Date: 10/26/24 Anesthesia Stop Time: 10:04 Summary Extremes of Age - Over 70 or under 1: PRINCIPAL JAVA DEVELOPER Coding CPT Codes CPT Codes: ANELeslie LWR INTST SCR COLSC - 13091 ([id number]) P2 - PATIENT W/MILD SYST DISEASE, QK - INTERVENTIONAL NURSE 2-4 CNCRNT ANES PROC, QX - PRINCIPAL JAVA DEVELOPER SVC W/ MD MED DIRECTION Additional Codes: Summary - Extremes of Age - Over 70 or under 1: PRINCIPAL JAVA DEVELOPER ([id number])
--- NOTE | 2024-10-26 10:04 | W.ANESCHARGE ---
Anesthesia Charges Start Date/Time Anesthesia Start Date: 10/26/24 Anesthesia Start Time: 09:39 Stop Date/Time Anesthesia Stop Date: 10/26/24 Anesthesia Stop Time: 10:04 Summary Extremes of Age - Over 70 or under 1: MANUFACTURING CLERK Coding CPT Codes CPT Codes: ANELeslie LWR INTST SCR COLSC - 62884 ([id number]) P2 - PATIENT W/MILD SYST DISEASE, QK - JACKER 2-4 CNCRNT ANES PROC, QX - MANUFACTURING CLERK SVC W/ MD MED DIRECTION Additional Codes: Summary - Extremes of Age - Over 70 or under 1: MANUFACTURING CLERK ([id number])
--- NOTE | 2024-10-26 12:00 | W.ANESCHARGE ---
Anesthesia Charges Start Date/Time Anesthesia Start Date: 10/26/24 Anesthesia Start Time: 09:39 Stop Date/Time Anesthesia Stop Date: 10/26/24 Anesthesia Stop Time: 10:04 Summary Extremes of Age - Over 70 or under 1: MDA Coding CPT Codes CPT Codes: ANES LWR INTST SCR COLSC - 43921 ([id number]) QK - INDUSTRIAL GAS SERVICE HELPER 2-4 CNCRNT ANES PROC, QX - SAND MIXER OPERATOR SVC W/ MD MED DIRECTION, P2 - PATIENT W/MILD SYST DISEASE Additional Codes: Summary - Extremes of Age - Over 70 or under 1: MDA ([id number])
== END 2024-10-26 08:16 | disposition home or self-care (01) ==
LOC: OP CLINIC 08:16
PROVIDERS: PCP Family Medicine; Visit Provider Surgery
DX: K57.32 Diverticulitis of large intestine without perforation or abscess without bleeding (principal); K57.30 Diverticulosis of large intestine without perforation or abscess without bleeding; K64.4 Residual hemorrhoidal skin tags
CPT/HCPCS: 00812; 45378; 99100; J2704

== ENCOUNTER 2024-10-27 06:06 | Inpatient (IN) | payer OTHER, SELFPAY ==
[2024-10-27] VITALS (20 sets, daily range): BP systolic 124–154; BP diastolic 61–87; PULSE 66–97; RESP 14–19; TEMP 35.7–36.7; O2SAT 90–100; BMI 22.3
[2024-10-27] MEDS: LACTATED RINGERS 1000 ML 1,000 ML 100 ML IV ×2 (06:25→10:49)
[2024-10-27] MEDS: SODIUM CHLORIDE 0.9 % (FLUSH) 10 ML SYRINGE IVF (06:56)
--- NOTE | 2024-10-27 07:41 | W.PM.H&PU ---
History & Physical Update History & Physical Update H&P Reviewed and patient assessed: No changes noted
[2024-10-27] MEDS: ERTAPENEM 1 GM inj IVPB (08:00)
--- NOTE | 2024-10-27 08:00 | W.PM.NB ---
Nerve Block Nerve Block Time Seen by Provider: 07:46 Date Seen: 10/27/24 Type of block requested by surgeon for post-operative analgesia: TAP Side: bilateral Time out performed: Yes Verification of patient name: Yes Verification of date of : Yes Site marking: site marked Name of person performing procedure: Kishan Continuous monitoring Was continuous monitoring of O2 sat, B/P, monitor technician, recorded every 15 minutes?: Yes Procedure Checklist: sterile prep, needles and gloves Ultrasound guided. Images saved: Yes Medications given in 5ml increments after negative aspiration: Marcaine %: 0.25 mL: 30 Needle gauge: 20 and Exparel mL: 10 Patient tolerated procedure well: Yes Additional comments: Needle noted between internal oblique and transversus abdominus. Local spread visualized Block Charges Block Charge (with Pro Fee): TAP Bilateral Use of Ultrasound Machine for Block: Yes- US Guidance/pain block
--- NOTE | 2024-10-27 09:46 | SUR.OPER ---
Updated patient's son Marito at 0945 on procedure and that everything is going well and patient is tolerating surgery and anesthesia well.
--- NOTE | 2024-10-27 09:54 | W.ANESCHARGE ---
Anesthesia Charges Start Date/Time Anesthesia Start Date: 10/27/24 Anesthesia Start Time: 07:41 Stop Date/Time Anesthesia Stop Date: 10/27/24 Anesthesia Stop Time: 13:20 Summary Extremes of Age - Over 70 or under 1: MDA Coding CPT Codes CPT Codes: ANESTH SURG LOWER ABDOMEN - 49201 ([id number]) P2 - PATIENT W/MILD SYST DISEASE, QK - CARBURETOR MECHANIC 2-4 CNCRNT ANES PROC, QX - CHAINER SVC W/ MD MED DIRECTION Additional Codes: Summary - Extremes of Age - Over 70 or under 1: MDA ([id number])
[2024-10-27] MEDS: BUPIVACAINE 0.25% 30 ML INJECTION (10:00)
--- NOTE | 2024-10-27 10:14 | SUR.OPER ---
2nd time out for 2nd part of procedure at 0841
--- NOTE | 2024-10-27 11:52 | SUR.OPER ---
Call placed to family, Marito- jon voicemail, contacted secondary contact Cheryl and verbal update given.
--- NOTE | 2024-10-27 13:04 | PM.GSPRC ---
Operative Note Date of procedure: 10/27/24 Pre-op diagnosis: 1. Recurrent complicated sigmoid diverticulitis. Post-op diagnosis: Same Type of Procedure: 1. Laparoscopic sigmoidectomy. 2. Laparoscopic mobilization of the splenic flexure. 3. laparoscopic lysis of adhesions. 4. Rigid proctoscopy. 5. Injection of I-SPY Indications: 83-year-old female was seen by Dr. Munoz for evaluation of complicated recurrent diverticulitis. Laparoscopic sigmoidectomy was recommended. Patient presents today for the procedure. Please see Dr. Munoz's note for more details. Procedure Description: During this entire case I acted a as a co- surgeon in assisting Dr. Munoz with the procedure. When I entered the room, patient just underwent cystoscopy and left ureteral stent placement. Difficulty was noted with advancing the wire into the right ureter, and the right ureteral stent placement was aborted. The sterile drapes were then removed and the abdomen was prepped in the usual sterile fashion. The surgical field was then draped in the usual sterile fashion. Abdomen was entered with a Visiport technique in the left upper quadrant. A 12 mm port was then placed in the right lower quadrant and 2 additional 5 mm ports were placed supraumbilically and on the right side of the abdomen under direct visualization. The left upper quadrant port was examined with the camera, and no intra-abdominal organ injury was noted with this port placement. The sigmoid colon was identified and appeared to be adherent to the lateral abdominal wall with wispy adhesions and dense adhesions near the ureter. We then proceeded with lateral dissection of the sigmoid colon. During this part of the procedure I assisted with visualization and retraction of the colon. Wispy adhesions were taken down with Metzenbaum scissors. Dense adhesions to the lateral abdominal wall were taken down with Metzenbaum scissors and Harmonic scalpel. Care was taken to avoid injury to the ureter, which was visualized with a lighted ureteral stent. All dissection was done circumferentially by dividing the sigmoid colon mesentery left laterally and posteriorly. During this dissection was stayed close to the colon. The sigmoid colon appeared to be redundant and was attached in the pelvis to peritoneum with adhesions. These adhesions were also taken down with Harmonic scalpel and Metzenbaum scissors. The sigmoid colon mesentery continued to be mobilized circumferentially into the pelvis on the right and left side until peritoneal reflection was identified. During this part of the procedure I assisted with retraction and mobilization. Hemostasis throughout the case was achieved with 5 mm clips and Harmonic scalpel. Sigmoidal arteries and vein were clipped with 5 mm clips on the patient's side and divided with Harmonic scalpel near the specimen. When the redundant sigmoid colon was fairly mobile, we then proceeded with laparoscopic mobilization of the splenic flexure. The descending colon was also somewhat redundant. The descending colon was retracted medially and caudally. The white line of Toldt was incised with Harmonic scalpel. This dissection was carried towards the spleen. The splenic flexure of the descending colon was then mobilized with Harmonic scalpel. No injury was noted to the spleen. During this part of the dissection I assisted with mobilization and retraction. Arterial bleeding was seen from divided gonadal artery on the left. This was adjacent to the left ureter. Care was taken to control this bleeding with 5 mm clips to avoid injury to the ureter. At this time anesthesia was concerned with CO2 retention. Since all mobilization was already complete, the distal end of the sigmoid colon was then divided with a purple load of Endo-JEREMI stapler. No bleeding was seen from the staple line. We then proceeded with extracorporeal part of the procedure. The abdomen was deflated. A Pfannenstiel incision was made suprapubically with a scalpel. Subcutaneous fat and anterior fascia were incised with cautery. During this part of the dissection I assisted with retraction and mobilization. The rectus muscles were retracted laterally and peritoneum was grasped. Peritoneum was then incised with cautery. This peritoneal incision was extended superiorly and inferiorly, and Bryson retractor was placed. The small bowel was then retracted cephalad and the cut edge of the sigmoid colon was identified. I SPY was then used to assess perfusion of the proximal end of the colon and the rectal stump. The rectal stump was well perfused. The line of demarcation of perfusion in the proximal sigmoid colon was identified. The abdomen was then covered with sterile towels to minimize contamination. The proximal sigmoid colon was then divided in the area of well perfused colon. This was done with a scalpel. The open end of the colon was then grasped with Michael clamps. A pursestring suture was then placed in the open end of the descending colon with 2-0 Prolene. 28 mm EEA stapler anvil was then placed into this open end of the descending colon and the Prolene suture was tied around the anvil. The proposed staple line around the edge of the anvil was then cleared off colonic fat with cautery. An additional 3-0 Vicryl pursestring suture was placed and tied around the anvil. During this part of the procedure I assisted with mobilization and suture placement. At this time doctor Munoz Continued with abdominal portion of the procedure, and I proceeded with rigid proctoscopy. We elected to do this part of the procedure open given patient's CO2 retention. The anal sizers were placed through the anus into the rectal stump sequentially. All 3 sizers were easily passed through the anus into the rectal stump till the end of the staple line. The 28 EEA stapler was then placed through the anus and the pin was deployed through the center of the staple line. The anvil was then placed onto the stapler pin and anastomosis was then created according to manufacture's recommendations. The stapler was then removed and 2 donuts were examined. The donuts were intact. The proctoscope was then placed into the rectum and the staple line was visualized at 13 cm. A leak test was done with clamped proximal colon, and no air leak was identified. At this time proctoscopy was complete. I scrubbed back into the case and all the dirty instruments and towels were removed. The Bryson retractor was removed. No bleeding was seen in the surgical site. We then proceeded with abdominal closure. The peritoneum was closed with a running 3-0 Vicryl suture. The anterior fascia was closed with 2 running PDS sutures. Moist Ray-Alaina was placed into the fan to incision. The abdomen was then insufflated with CO2 and anastomosis was again examined. There was a small area of descending colon just proximal to the staple line that appeared bruised. I SPY was used again to assess perfusion of this area, however it was difficult to tell if in the Indocyanine green was retained from the first infusion or not. The area of concern was then submerged under warm saline and it appeared to improve in color. We elected to proceed with abdominal closure. Dr. Munoz continued with incisional closure and I left the operating room. Anesthesia: GETA Surgeon: Carmina Munoz MD Co-Surgeon: Taylor Keith MD Estimated blood loss (mL): 50 Additional Specimen Information: 1. Sigmoid colon and anastomotic rings. Condition: stable Disposition: PACU
--- NOTE | 2024-10-27 13:28 | W.ANESCHARGE ---
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
[2024-10-27] MEDS: LACTATED RINGERS 1000 ML 1,000 ML 75 ML IV (14:02)
--- NOTE | 2024-10-27 14:08 | PM.GSPRC ---
Operative Note Date of procedure: 10/27/24 Pre-op diagnosis: Diverticulitis of the colon Post-op diagnosis: Same Type of Procedure: 1. Laparoscopic sigmoidectomy 2. Laparoscopic mobilization of splenic flexure 3. Laparoscopic lysis of adhesions 4. Proctoscopy 5. Cystoscopy with placement of left ureteral stent Procedure Description: After discussing the risks and benefits of the procedure, the patient signed informed consent.? The operative site was marked and the patient was brought to the operating room and placed on the operating table in lithotomy position.? Care was taken to pad the patient's pressure points.?? The patient was then intubated by anesthesia.?? The operative site was then prepped and draped in the usual sterile fashion.? A time-out was then performed. Using a cystoscope the urethra was intubated and the bladder instilled with saline. The left and right ureteral opening was identified. The bladder was surveyed with no evidence of any mass or suspicious lesions. A flexible guidewire was placed in the left ureter. The stent was then thread over the wire using Seldinger technique to 20 cm. The guidewire was removed and the internal light placed into the stent catheter. A small amount of bleeding was seen in the stent. There was difficulty in getting the wire to go into the right ureteral opening. The decision was made to abort this portion of the procedure and continue with the left ureteral stent in place. A Zuñiga was then placed under sterile conditions. The stent was secured to the Zuñiga with a Tegaderm and 3 0 Vicryl suture. The abdomen was then prepped and draped for the laparoscopic portion of the procedure. Using a 5 mm Visiport I entered the abdomen in the left upper quadrant. CO2 was used to insufflate the abdomen. The area under the port was briefly surveyed with no evidence of injury. An additional 5 mm port was placed just above the umbilicus. A 12 mm port was placed in the right lower quadrant and a 5 mm port placed in the mid right abdomen. Dr. Keith controlled the camera and used the port in the left upper quadrant to assist with retraction and visualization. The patient was placed in Trendelenburg with left side up. Small bowel within the pelvis was moved to the right side of the patient. The sigmoid colon was redundant and had multiple adhesions to the lateral abdominal wall. These adhesions were taken down sharply with laparoscopic scissors and the Harmonic device, taking care not to injure the abdominal wall or underlying colon. During this portion of the procedure the lighted stent within the left ureter was easily identified outside of our operative field. I continued the lateral dissection into the pelvis. Here we encountered an inflamed portion of the colon that was densely adherent to the abdominal wall. The underlying ureter was close to this area of dissection, but again care was taken to avoid injury. The adhesion was taken down bluntly with a suction hot top liner helper and sharply with laparoscopic scissors. A small area of bleeding near the colonic mesentery was controlled with several 5 mm clips. I continued the dissection circumferentially, cauterizing the mesentery of the colon with the Harmonic device. Larger vessels within the mesentery were identified and doubly ligated with 5 mm clips before being transected. There was significant redundancy to the sigmoid colon, so Dr. Keith helped assist with retraction of the colon towards the head as I continued to mobilize it. Omentum was adhesed to the medial side of the sigmoid colon which was taken down sharply with laparoscopic scissors. The mobilization then continued down into peritoneal reflection of the pelvis bilaterally. A small area of bleeding was seen on the left lateral abdominal wall near the ureter. The bleeding was controlled with 5 mm clips. Once the sigmoid colon and pelvic dissection was complete the patient was repositioned with head up. I continued the lateral dissection along the white line of Toldt towards the splenic flexure. This dissection plane was followed along the colon wall and towards the spleen. The splenic flexure of the descending colon was then fully mobilized with the Harmonic scalpel. During this portion of the procedure Dr. Keith assisted with mobilization and retraction. At the completion of this portion of the procedure the colon was very mobile and fell easily into the pelvis. At this time anesthesia raised concerns regarding CO2 retention. There was also crepitus noted in the patient's chest wall. We proceeded with division of the distal end of colon along a chosen area of the proximal rectum with a 60 mm purple load Endo-JEREMI stapler. No bleeding was seen from the staple line. CO2 was then desufflated from the abdomen. While doing the extracorporeal anastomosis there was improvement in the patient's CO2 retention. A Pfannenstiel incision was made 2 finger breaths above the pubic bone with a 10 blade scalpel. The subcutaneous fat and anterior fascia were incised with cautery. We mobilized the anterior fascia superior and inferior off of the rectus muscles. The rectus muscle was then retracted laterally, the peritoneum grasped and abdomen entered with cautery. The peritoneum was incised superior and inferior. A medium Bryson wound retractor was placed. The small bowel was then retracted and packed cephalad. Using a sweetheart retractor the uterus was retracted and we were able to visualize the rectal stump, which appeared well perfused. Anesthesia then injected I SPY, which allowed us to assess adequate perfusion of the rectal stump and find a proximal line of demarcation on the sigmoid colon. This was chosen for a proximal point of transection. The abdomen was then covered with sterile towels and all laparoscopic equipment passed off the field. A large Chele was used to clamp the colon. I then divided just below the clamp with a scalpel. The specimen was passed off to be sent to pathology. The distal end of the specimen was noted to be the staple line and the proximal end the open cut portion. A small area of bleeding on the mesentery was controlled with a 3-0 Vicryl stitch. The open end of the colon was grasped with Commiskey clamps. Using a 2 0 Prolene a baseball stitch was performed and the 28 mm EEA anvil placed into the open end and tied with the suture. The proposed staple line around the edge of the anvil was cleared off of colonic fat with cautery. An additional 3-0 Vicryl pursestring suture was placed and tied around the anvil. Dr. Keith then proceeded with rigid proctoscopy. Please see her dictated operative report. Using the 28 EEA stapler she placed it through the anus and the pin was deployed just below the staple line of the rectal stump. I placed the anvil onto the pin, taking care not to twist the mesentery. The anastomosis was then created. Dr. Keith proceeded to remove the stapler and examined the 2 donut rings on the back table. Both the donuts were intact. Both anastomotic rings were sent to pathology with the specimen. Using my fingers I clamped the bowel proximally and we filled the abdomen with warm saline while Dr. Keith insufflated the rectum. No evidence of leak. She was able to visualize the staple line at about 13 cm, which appeared intact and hemostatic. Dr. Keith scrubbed back into the case, all dirty instruments and equipment was removed. The Bryson wound retractor was removed. The peritoneum was closed with a running 3 0 Vicryl stitch. The anterior fascia was closed with 2 running 0 PDS suture. A moist Ray-Alaina was then placed into the incision and the abdomen was insufflated with CO2. The anastomosis was again examined, which appeared intact. A small area of bruising was identified along the right lateral edge, however this did appear to be perfused with no serosal tear. I spy was again injected to assess for perfusion of the area, however this was difficult to determine due to retained dye from the 1st infusion. We submerged the area with warm saline and observed some improvement in color. We elected to proceed with abdominal closure. The laparoscopic ports were removed under direct visualization. The 12 mm port fascua in the right lower quadrant was closed with 0 Vicryl suture. The port sites were closed with 4-0 Monocryl. The Pfannenstiel incision was closed in layers with interrupted 3 0 Vicryl and running 4-0 Monocryl stitch. Sterile dressings were then applied. All counts were correct at the end of the case. ? The patient was then woken and transported to the recovery area in stable condition. ? The patient tolerated the procedure well. Findings: Inflammation of the sigmoid colon consistent with diverticular disease. Anesthesia: GETA Surgeon: Carmina Munoz MD Estimated blood loss (mL): 50 Additional Specimen Information: Sigmoid colon and anastomotic rings Condition: stable Disposition: PACU
[2024-10-27] MEDS: HYDROmorphone 0.5 mg/0.5 ml inj IVP ×3 (15:39→21:15)
--- NOTE | 2024-10-27 22:13 | PC.NURSE ---
End of Shift: Patient pleasant and cooperative. Afebrile. Dressing and lap sites to abdomen C/D/I. Rating pain up to 7-8/10 and PRN Dilaudid given x3. Tolerating clear liquids with no nausea. Up to chair with 1 assist. O2 sats decreased to mid 80s on room air while sleeping. 1L oxymask to keep sats greater than 90%.
[2024-10-28] VITALS (8 sets, daily range): BP systolic 107–163; BP diastolic 51–79; PULSE 73–90; RESP 16–18; TEMP 36.5–37.1; O2SAT 88–96
[2024-10-28] MEDS: LACTATED RINGERS 1000 ML 1,000 ML 75 ML IV (03:26)
[2024-10-28] MEDS: HYDROmorphone 0.5 mg/0.5 ml inj IVP (06:08)
[2024-10-28 06:31] LABS: Hematocrit 36.4 % (33.0-51.0); Hemoglobin* 11.8 gm/dL (12.0-16.0); Immature Granulocytes Abs Auto 0.01 K/uL (0.00-0.30); Immature Granulocytes Pct Auto 0.1 %; Lymphocytes Percent Auto 10.7 % (20-44); Mean Corpuscular HGB Conc 32 gm/dL (32-36); Mean Corpuscular Hemoglobin 32 pg (26-34); Mean Corpuscular Volume 98 fL (80-100); Monocytes Percent Auto 6.6 % (0.0-11.0); Neutrophils Percent Auto 82.6 % (42.0-72.0); Platelet Count* 176 K/uL (140-440); RDW Coefficient of Variation % 12.8 % (11.5-15.5); White Blood Count* 10.49 K/uL (4.50-11.00)
[2024-10-28 06:33] LABS: Slide Review Reflex No
--- NOTE | 2024-10-28 06:42 | PC.NURSE ---
End of Shift: The patient is pleasant and slept well in between cares. VSS on RA. No reports of pain until late this morning, PRN medication was given. LR infusing @ 75ml/hr. Zuñiga is patent and draining dark tea colored urine. Call light within reach. Kayley RO BSN
[2024-10-28 06:49] LABS: Chloride* 99 mmol/L (96-114); Potassium* 4.6 mmol/L (3.6-5.1); Sodium* 134 mmol/L (135-149)
[2024-10-28 06:52] LABS: Anion Gap 3 mEq/L (7-15); Blood Urea Nitrogen* 15 mg/dL (7-30); Calcium* 8.4 mg/dL (8.4-10.6); Carbon Dioxide* 32 mmol/L (20-32); Creatinine* 0.8 mg/dL (0.5-1.5); Est. Creatinine Clearance* 36.81; Estimated Glomerular Filt Rate 73 ml/min; Glucose* 122 mg/dL (60-115)
[2024-10-28] MEDS: 0.9 % SODIUM CHLORIDE 500 ML 500 ML IV (07:22)
[2024-10-28] MEDS: SIMETHICONE 80 MG TAB.CHEW 160 MG PO ×2 (08:30→20:03)
[2024-10-28] MEDS: HYDROCODONE-ACETAMIN 5-325 MG 1 TAB PO ×4 (09:49→21:42)
--- NOTE | 2024-10-28 10:05 | PM.GSPN ---
Subjective Subjective Date Seen: 10/28/24 Interval history: Patient is doing well this morning. Main complaint is gas pain. Did pass a small amount of gas this morning. Has been tolerating clears without nausea or emesis. No appetite. Has not yet walked the halls. Denies any incisional pain and no need for pain medicine overnight. Had some low UOP, so is getting a bolus of 500 cc this morning. No other concerns. Exam Narrative: Exam Narrative: Gen: alert and oriented, NAD Abd: soft, appropriately tender over incisions. Steri strips in place c/d/i. Mild distension and tympanic. No concern for infection. : perez in place with dark, concentrated urine, non bloody in appearance. Const: Vital Signs, click to edit/add: Vital Signs - 24 hr 10/27/24 13:15 10/27/24 13:20 10/27/24 13:25 Temperature 98.1 F Pulse Rate 66 66 69 Pulse Rate [Pulse Oximeter] Respiratory Rate 14 15 18 Blood Pressure 142/76 H 132/70 129/70 Blood Pressure [Le ft Arm] Pulse Oximetry 96 100 100 Oxygen Delivery Me thod Room Air Nasal Cannula Room Air Oxygen Flow Rate 2 2 10/27/24 13:30 10/27/24 13:35 10/27/24 13:40 Temperature 97.2 F L Pulse Rate 66 68 74 Pulse Rate [Pulse Oximeter] Respiratory Rate 17 19 15 Blood Pressure 146/86 H 142/72 H 140/75 H Blood Pressure [Le ft Arm] Pulse Oximetry 92 94 97 Oxygen Delivery Me thod Room Air Room Air Room Air Oxygen Flow Rate 10/27/24 13:53 10/27/24 13:53 10/27/24 14:00 Temperature 96.3 F L Pulse Rate 69 72 Pulse Rate [Pulse Oximeter] Respiratory Rate 16 16 16 Blood Pressure 145/69 H 138/87 Blood Pressure [Le ft Arm] Pulse Oximetry 93 93 96 Oxygen Delivery Me thod Room Air Room Air Room Air Oxygen Flow Rate 10/27/24 14:15 10/27/24 14:30 10/27/24 14:45 Temperature 96.3 F L Pulse Rate 74 75 70 Pulse Rate [Pulse Oximeter] Respiratory Rate 16 16 16 Blood Pressure 142/74 H 145/85 H 154/80 H Blood Pressure [Le ft Arm] Pulse Oximetry 93 95 94 Oxygen Delivery Me thod Room Air Room Air Room Air Oxygen Flow Rate 10/27/24 15:00 10/27/24 15:00 10/27/24 15:30 Temperature 97.5 F L Pulse Rate 86 88 Pulse Rate [Pulse Oximeter] Respiratory Rate 16 16 Blood Pressure 135/70 138/74 Blood Pressure [Le ft Arm] Pulse Oximetry 94 94 97 Oxygen Delivery Me thod Room Air Room Air Room Air Oxygen Flow Rate 10/27/24 16:00 10/27/24 17:00 10/27/24 18:00 Temperature 98.0 F Pulse Rate 89 86 85 Pulse Rate [Pulse Oximeter] Respiratory Rate 16 16 16 Blood Pressure 132/64 145/75 H 126/64 Blood Pressure [Le ft Arm] Pulse Oximetry 95 94 92 Oxygen Delivery Me thod Room Air Room Air OxyMask Oxygen Flow Rate 2 10/27/24 19:00 10/27/24 20:00 10/27/24 23:00 Temperature 97.9 F 97.5 F L 97.9 F Pulse Rate 84 83 Pulse Rate [Pulse Oximeter] 79 Respiratory Rate 14 16 16 Blood Pressure 124/67 135/67 Blood Pressure [Le ft Arm] 129/61 Pulse Oximetry 92 97 90 Oxygen Delivery Me thod Room Air OxyMask Room Air Oxygen Flow Rate 1 10/27/24 23:00 10/28/24 03:00 10/28/24 07:00 Temperature 98.0 F 98.8 F Pulse Rate Pulse Rate [Pulse Oximeter] 81 90 Respiratory Rate 16 16 18 Blood Pressure Blood Pressure [Le ft Arm] 122/57 L 152/71 H Pulse Oximetry 91 90 96 Oxygen Delivery Tx thod Room Air Room Air Room Air Oxygen Flow Rate 10/28/24 08:16 10/28/24 08:17 Temperature Pulse Rate Pulse Rate [Pulse Oximeter] 81 Respiratory Rate 18 18 Blood Pressure Blood Pressure [Le ft Arm] Pulse Oximetry 96 Oxygen Delivery Me thod Room Air Oxygen Flow Rate Labs/Imaging Labs Labs: Hgb 11.8, WBC 10. BMP reviewed, Creatinine 0.8 Imaging Imaging: No new imaging. Progress Note:A&P Assessment and plan (1) Diverticulitis: Status: Acute Assessment and Plan: Patient is POD1 laparoscopic sigmoidectomy for diverticular disease. Doing well post op. VSS overnight. Labs show mild anemia 11.8, no concern for ongoing bleeding. Is tolerating clear liquids with exam showing mild distension. - clear liquids - continue IVF with poor po intake - remove perez, continue to monitor UOP - IV and po pain meds as needed - simethicone PRN for gas pains - encourage ambulation - PT/OT consulted - lovenox to start this evening and SCDs for DVT ppx
[2024-10-28] MEDS: ONDANSETRON 2 MG/ML inj IVP (10:54)
[2024-10-28] MEDS: diphenhydrAMINE 50 MG/ML inj IVP (12:24)
--- NOTE | 2024-10-28 12:44 | W.PM.CROSSCO ---
Subjective Subjective Date Seen: 10/28/24 Principal diagnosis: Possible allergic reaction Interval history: Called to see Megha for erythema and edema of bilateral cheeks. No fever, no tongue edema or sore throat, no difficulty swallowing or breathing. No nausea/vomiting. Had a dose of [place] 3-shilpa hours prior to symptoms. History of skin sensitivity. Objective Objective Data Details: VS all wnl Sitting comfortably in bed, nontoxic, speaking in full sentences Oropharynx moist and clear. + erythema over cheeks (L>R), no ttp, no palpable mass in salivary gland. Heart rate regular Lungs clear to auscultation bilaterally, no wheezing, no tachypnea No other skin rashes or abnormalities Assessment and Plan Assessment and plan (1) Rash: Problem comment: - bilateral cheeks: contact dermatitis vs atypical allergic reaction - prn Benadryl Status: Acute Plan - doesn't appear to be classic drug reaction, prn Benadryl - continue close monitoring - General Surgery updated
--- NOTE | 2024-10-28 15:28 | PC.NURSE ---
End of Shift: Patient pleasant and cooperative, A&O. VSS, afebrile. SpO2 maintained above 90% on RA. Patient reports pain in her abdomen this shift, managed with PRN medication. Patient reported nausea after pain medication, managed with PRN medication, see MAR. Patient had a red/purple rash and swollen left cheek and right cheek this shift, MD notified, PRN medication given, continued to monitor throughout shift. Patient reported pain in abdomen after this incident, MD okayed to continue hydrocodone, so gave PRN hydrocodone per MD. Patient reports no SOB or issues swallowing.?1A with walker and gait belt. ?
[2024-10-28] MEDS: LACTATED RINGERS 1000 ML 1,000 ML 100 ML IV (18:15)
--- NOTE | 2024-10-28 19:41 | PC.NURSE ---
End of Shift ([id number]): Patient pleasant and cooperative. Patient vitally stable, lungs clear, BS WNL, IV running LR at 100. Patient rated abdominal pain 7/10, 1 norco given. Patient abdominal incision and lap sites x4 C/D/I. Patient urinating well and tolerating clear liquid diet. Patient has walked the [place]rew[place] x2, and was up in the chair for dinner.
[2024-10-28] MEDS: ATORVASTATIN CALCIUM 40 MG TABLET PO (21:42)
[2024-10-28] MEDS: ENOXAPARIN 40 MG/0.4 ML INJ SUBCUT (21:48)
[2024-10-29] VITALS (7 sets, daily range): BP systolic 99–159; BP diastolic 49–75; PULSE 71–76; RESP 14–18; TEMP 36.1–37.4; O2SAT 90–94
[2024-10-29] MEDS: HYDROCODONE-ACETAMIN 5-325 MG 1 TAB PO ×2 (03:08→05:28)
[2024-10-29] MEDS: SIMETHICONE 80 MG TAB.CHEW 160 MG PO (05:27)
[2024-10-29] MEDS: LACTATED RINGERS 1000 ML 1,000 ML 100 ML IV (05:28)
--- NOTE | 2024-10-29 06:14 | PC.NURSE ---
Shift note: Pt is doing well ambulating with A1, walker and GB. Alert and oriented, vitally stable. incision sites clean and dry. Patient has been complaining of gas pain and sensation to have a bowel movement but several attempt failed. Pain rated at 5 and 6. Vitally stable.
[2024-10-29] MEDS: LEVOTHYROXINE 50 MCG TABLET PO (06:53)
--- NOTE | 2024-10-29 08:50 | PM.GSPN ---
Subjective Subjective Date Seen: 10/29/24 Interval history: Patient had a difficult night last night. She reports a lot of gas pain and feeling an urgency to have a bowel movement, unable to do so. She did not sleep well. The pain is improved this morning. She continues to pass a lot of gas. She is tolerating clear liquids without nausea. She is feeling hungry this morning. She has been walking the halls and is working with physical therapy morning. Exam Narrative: Exam Narrative: General: Alert and oriented, no acute distress Abdomen: Soft, nondistended. Some mild diffuse tenderness with palpation no guarding or rebound. Steri-Strips clean/dry/intact Const: Vital Signs, click to edit/add: Vital Signs - 24 hr 10/28/24 11:17 10/28/24 15:24 10/28/24 15:24 Temperature 98.7 F 97.7 F Pulse Rate [Pulse Oximeter] 73 74 74 Respiratory Rate 18 18 18 Blood Pressure [Le ft Arm] 150/66 H Blood Pressure [Ri ght Arm] 107/51 L Pulse Oximetry 93 93 Oxygen Delivery Me thod Room Air Room Air 10/28/24 15:24 10/28/24 19:00 10/28/24 23:00 Temperature 97.7 F Pulse Rate [Pulse Oximeter] 80 74 Respiratory Rate 18 18 18 Blood Pressure [Le ft Arm] 163/79 H Blood Pressure [Ri ght Arm] Pulse Oximetry 93 93 Oxygen Delivery Me thod Room Air Room Air 10/28/24 23:00 10/28/24 23:00 10/29/24 01:40 Temperature 97.9 F 97.9 F Pulse Rate [Pulse Oximeter] 74 71 Respiratory Rate 18 18 18 Blood Pressure [Le ft Arm] 121/57 L 153/74 H Blood Pressure [Ri ght Arm] Pulse Oximetry 88 88 90 Oxygen Delivery Me thod Room Air Room Air Room Air 10/29/24 08:00 10/29/24 08:00 10/29/24 08:00 Temperature 97.9 F Pulse Rate [Pulse Oximeter] 71 71 Respiratory Rate 18 18 18 Blood Pressure [Le ft Arm] 127/58 L Blood Pressure [Ri ght Arm] Pulse Oximetry 92 92 Oxygen Delivery Me thod Room Air Room Air Progress Note:A&P Assessment and plan (1) Diverticulitis: Status: Acute Assessment and Plan: Patient is POD2 laparoscopic sigmoidectomy for diverticular disease. Significant cramping gas pain. Passing gas but no bowel movement. Tolerating clear liquids. Vital signs stable and afebrile. - advance to full liquids - DC IV fluids - continue to monitor urinary output - IV and po pain meds as needed - simethicone PRN for gas pains. Patient is requesting a laxative, will add senna. - encourage ambulation - PT/OT consulted - lovenox and SCDs for DVT ppx
[2024-10-29] MEDS: SENNOSIDES/DOCUSATE TABLET 1 TAB PO (09:51)
[2024-10-29] MEDS: ACETAMINOPHEN 325 MG TABLET 650 MG PO ×3 (11:58→23:35)
--- NOTE | 2024-10-29 19:31 | PC.NURSE ---
Nursing Care Hours: [id number] Pt this shift calm and cooperative, alert and oriented. Pain minimal and treated with acetaminophen Q6H. Abdomen soft, BS active x4. Passing gas but no BM. Senna started today. SL the IV, encouraging PO intake. Pt independent in the room and andrews, tolerating well. Tolerating full liquid diet. VSS.
[2024-10-29] MEDS: ATORVASTATIN CALCIUM 40 MG TABLET PO (21:44)
[2024-10-29] MEDS: ENOXAPARIN 40 MG/0.4 ML INJ SUBCUT (21:44)
[2024-10-30] VITALS (8 sets, daily range): BP systolic 140–176; BP diastolic 63–89; PULSE 70–80; RESP 18; TEMP 36.4–37; O2SAT 93–97
[2024-10-30] MEDS: LEVOTHYROXINE 50 MCG TABLET PO (05:55)
[2024-10-30] MEDS: ACETAMINOPHEN 325 MG TABLET 650 MG PO (05:55)
--- NOTE | 2024-10-30 06:31 | PC.NURSE ---
[id number]: Patient cooperative with cares. Family at bedside and supportive. BS active, passing gas, and BMx3. Old blood present in first 2 BM but not in 3rd BM. Ambulated in the andrews x2 during shift. PRN Tylenol for abdominal pain. Ice offered but refused by patient. Tolerating a full liquid diet and denies N/V. Afebrile.
[2024-10-30] MEDS: SENNOSIDES/DOCUSATE TABLET 1 TAB PO ×2 (09:41→21:28)
--- NOTE | 2024-10-30 10:07 | PM.GSPN ---
Subjective Subjective Date Seen: 10/30/24 Interval history: Patient did well overnight. She has had a few liquid stools. The 1st 2 bowel movements had a mixture of old blood and some specks of red blood. This then cleared with her 3rd bowel movement being brown. She has been tolerating full liquids without difficulty. Denies any nausea. Has been ambulating well with occupational and physical therapy. Is using the walker in the hallway. Exam Narrative: Exam Narrative: General: Patient walking the halls and looking well, nontoxic Abdomen: Soft, no significant distension Extremities: +1 edema of bilateral lower extremities with Frantz stockings in place. Const: Vital Signs, click to edit/add: Vital Signs - 24 hr 10/29/24 11:00 10/29/24 15:00 10/29/24 15:00 Temperature Pulse Rate [Pulse Oximeter] 74 74 Respiratory Rate 14 14 14 Blood Pressure [Le ft Arm] 99/49 L Blood Pressure [Ri ght Arm] 108/54 L Pulse Oximetry 91 93 Oxygen Delivery Me thod Room Air Room Air 10/29/24 15:00 10/29/24 19:49 10/29/24 22:06 Temperature 97 F L 98.9 F Pulse Rate [Pulse Oximeter] 72 76 Respiratory Rate 14 18 18 Blood Pressure [Le ft Arm] 112/59 L 132/65 Blood Pressure [Ri ght Arm] Pulse Oximetry 93 93 93 Oxygen Delivery Me thod Room Air Room Air Room Air 10/29/24 22:30 10/30/24 03:00 10/30/24 07:00 Temperature 99.3 F 98.6 F Pulse Rate [Pulse Oximeter] 75 76 Respiratory Rate 18 18 18 Blood Pressure [Le ft Arm] 159/75 H 156/81 H Blood Pressure [Ri ght Arm] Pulse Oximetry 94 97 96 Oxygen Delivery Me thod Room Air Room Air Room Air 10/30/24 08:04 Temperature 97.8 F Pulse Rate [Pulse Oximeter] 70 Respiratory Rate 18 Blood Pressure [Le ft Arm] 166/63 H Blood Pressure [Ri ght Arm] Pulse Oximetry 96 Oxygen Delivery Me thod Room Air Progress Note:A&P Assessment and plan (1) Diverticulitis: Status: Acute Assessment and Plan: Patient is POD3 laparoscopic sigmoidectomy for diverticular disease. Patient having bowel movements and tolerating advancement of diet. Will advance to regular today. Continues to need p.r.n. oral pain meds for pain. Physical therapy supplied patient with a walker and signed off. Occupational therapy was working with the patient this morning. No concerns from their perspective in returning to home. Patient's son will be coming to her house tomorrow morning to help. Anticipate discharge tomorrow.
[2024-10-30] MEDS: SIMETHICONE 80 MG TAB.CHEW 160 MG PO (18:48)
[2024-10-30] MEDS: ATORVASTATIN CALCIUM 40 MG TABLET PO (21:28)
[2024-10-30] MEDS: ENOXAPARIN 40 MG/0.4 ML INJ SUBCUT (21:29)
[2024-10-31 03:00] VITALS: BP 176/88; PULSE 73; RESP 16; TEMP 36.6; O2SAT 97
[2024-10-31] MEDS: LEVOTHYROXINE 50 MCG TABLET PO (06:29)
--- NOTE | 2024-10-31 06:44 | PC.NURSE ---
End of shift report [id number]: Alert and oriented x 4. Pain to abdomen well managed with PRN tylenol and rest. Bowel sounds active x 4. 4 laparoscopic sites and midline incision clean, dry and intact. Sites open to air. Tolerating diet and fluids well, does report some bloating after meals but resolves within 2 hours. 3 small soft stools this shift, no signs of blood in bowel movements. Independent with ambulation and transfers, does request assistance with SCD's.
[2024-10-31 08:01] VITALS: BP 165/69; PULSE 65; RESP 16; TEMP 36.3; O2SAT 95
--- NOTE | 2024-10-31 08:52 | P.DS_ITS ---
DS: Providers Provider Date Seen: 10/31/24 Date of admission: 10/27/24 06:06 Primary care physician: Olimpia Reyes MD Admitting Clinician: Carmina Munoz MD Consults: 10/27/24 13:57 Consult to Occupational Therapy [CONS] Routine Comment: Reason(s) for OT Consult:: Evaluate and Treat Any Restrictions?:: See Comment Comment: No heavy lifting > 20 lbs Consult to Physical Therapy [CONS] Routine Comment: Reason(s) for PT Consult:: Evaluate Ambulation Any Restrictions?:: See Comment Comment: No heavy lifting > 20 lbs Attending Physician on discharge: Carmina Munoz MD DS: Summary Hospital Course Hospital Course: Patient went to the operating room for laparoscopic sigmoidectomy secondary to diverticular disease. Postoperatively she did well. She had return of bowel function on postop day 2. Her diet slowly was advanced to low-fiber. Pain was well controlled with p.o. medications. She worked with Physical therapy and Occupational during this hospital stay and was given a walker to use at home. She is voiding independently. Her family has been very supportive and her son will be staying with her wants to leave the hospital. Patient okay to discharge. Recommend she continue on a low-fiber diet until re- evaluation in clinic in 2 weeks. Time Spent with Patient Time attestation: Total time spent providing and/or coordinating discharge services: Exam Narrative: Exam Narrative: General: Alert and oriented, no acute distress Respiratory: Equal breath rise bilaterally, maintained on room air CV: Well perfused Abdomen: Soft, nontender, nondistended. Steri-Strips in place clean/dry/intact. No concern for infection. Const: Vital Signs, click to edit/add: Vital Signs - 24 hr 10/30/24 11:50 10/30/24 15:00 10/30/24 16:08 Temperature 97.8 F 97.8 F Pulse Rate [Pulse Oximeter] 79 78 Respiratory Rate 18 18 18 Blood Pressure [Le ft Arm] 140/89 H 149/77 H Blood Pressure [Ri ght Arm] Pulse Oximetry 94 94 94 Oxygen Delivery Me thod Room Air Room Air Room Air 10/30/24 19:00 10/30/24 23:00 10/30/24 23:00 Temperature 97.6 F Pulse Rate [Pulse Oximeter] 80 80 Respiratory Rate 18 18 18 Blood Pressure [Le ft Arm] Blood Pressure [Ri ght Arm] 176/87 H Pulse Oximetry 93 93 Oxygen Delivery Me thod Room Air Room Air 10/30/24 23:00 10/31/24 03:00 10/31/24 08:01 Temperature 97.9 F Pulse Rate [Pulse Oximeter] 80 73 Respiratory Rate 18 16 16 Blood Pressure [Le ft Arm] 176/88 H Blood Pressure [Ri ght Arm] Pulse Oximetry 94 97 95 Oxygen Delivery Me thod Room Air Room Air Room Air 10/31/24 08:01 Temperature 97.4 F L Pulse Rate [Pulse Oximeter] 65 Respiratory Rate 16 Blood Pressure [Le ft Arm] Blood Pressure [Ri ght Arm] 165/69 H Pulse Oximetry 95 Oxygen Delivery Me thod Room Air DS: Data Data Completed and Pending Completed studies during hospitalization: Procedures Insertion of Infusion Device into Upper Vein, Percutaneous Approach (08/07/24) Discharge Plan Discharge Disposition: Home, Self-Care Date of Admission: 10/27/24 06:06 Attending Provider on Discharge: Carmina Munoz Primary Care Provider: Olimpia Reyes Condition: Improved Anticipated Discharge Date/Time: 10/31/24 08:50 Discharge Medications: New hydrocodone-acetaminophen 5-325 mg tablet 1 tab PO Q6H PRN (Reason: pain) Qty: 15 0RF senna 8.6 mg capsule 8.6 mg PO DAILY PRN (Reason: constipation) Qty: 90 0RF Continued hyoscyamine sulfate [Levsin] 0.125 mg tablet 0.125 mg PO Q4H PRN nystatin 100,000 unit/gram ointment 1 applic topical BID omega-3 fatty acids-fish oil 300-1,000 mg capsule 1 cap PO DAILY atorvastatin 40 mg tablet 40 mg PO QPM levothyroxine 50 mcg tablet 50 mcg PO DAILY aspirin [Adult Aspirin Regimen] 81 mg tablet,delayed release (DR/EC) 81 mg PO DAILY multivitamin [Daily Multi-Vitamin] Tablet 1 tab PO DAILY cholecalciferol (vitamin D3) [Vitamin D3] 25 mcg (1,000 unit) tablet 25 mcg PO DAILY calcium 500 mg tablet 500 mg PO DAILY Patient Comments: 650 mg (RN couldn't find in library) Discharge Orders: Discharge Order (Routine); Ordered 10/31/24 Ordered By: Carmina Munoz Patient Education: Colectomy (DC) Additional Instructions: You were prescribed a narcotic pain medication. In addition you may supplement with Tylenol and/or ibuprofen. Be sure to not exceed greater than 4 g of Tylenol in a 24 hour period. While on narcotic pain medicine please take stool softeners. A prescription of stool softeners has been sent to the pharmacy. Stop if having greater than 2 stools per day. You have Steri-Strips dressings in place, allow these to fall off on their own. Okay to shower. Do not soak in a bath or swim for 2 weeks. Follow-up with Dr. Munoz in 2-3 weeks. Please call if you are experiencing severe pain, nausea, vomiting, difficulty urinating, fever or not had a bowel movement in 4 days after surgery. Call Med/Surg for emergent, after hour questions to speak to the nurse or the chemistry quality control technician surgeon [phone]. Activity Level: No strenuous activity Activity Detail: Activity as tolerated. Avoid strenuous activity. No lifting greater than 20 lb for 6 weeks. Discharge Diet: Low Fiber Follow Up Appointments: Carmina Munoz MD [Staff Physician] - Olimpia Reyes MD [Primary Care Provider] - Forms: [employer] Info Instructions
== END 2024-10-31 10:15 | disposition home or self-care (01) | DRG 331 ==
PROVIDERS: Admitting Provider Surgery; PCP Family Medicine; Visit Provider Surgery
PROC: 0DTN0ZZ Resection of Sigmoid Colon, Open Approach (ICD-10-PCS; CPT 44204; principal; 2024-10-27 07:30)
DX: K57.20 Diverticulitis of large intestine with perforation and abscess without bleeding (principal); G89.18 Other acute postprocedural pain; K66.0 Peritoneal adhesions (postprocedural) (postinfection); R21 Rash and other nonspecific skin eruption; E03.9 Hypothyroidism, unspecified; E78.5 Hyperlipidemia, unspecified; D64.9 Anemia, unspecified
CPT/HCPCS: 00840; 36415; 45378; 64488; 76942; 80048; 85025; 88307; 97116; 97161; 97165; 97530; 97535; 99100; A4314; A9270; C1758; C1769; J0665; J0666; J1100; J1171; J1200; J1335; J1650; J2371; J2405; J2704; J3010; J3475; J3490; J7030; J7120